=== PATIENT | female | born 1955 | race American Indian/Alaskan Native ===

== ENCOUNTER 2019-01-02 03:33 | Inpatient (IN) | payer MEDICARE ==
--- NOTE | 2019-01-02 04:04 | Emergency Department Report ---
ED Altered Mental Status HPI - General Chief Complaint: Altered Mental Status Stated Complaint: AMS Time Seen by Provider: 01/02/19 03:55 Source: EMS Mode of arrival: Stretcher Limitations: Altered Mental Status - History of Present Illness MD Complaint: altered mental status, decreased responsiveness -: Sudden Severity: severe Consistency of Symptoms: constant Context: unknown Associated Symptoms: shortness of breath - Related Data Allergies Allergy/AdvReac Type Severity Reaction Status Date / Time No Known Allergies Allergy Unverified 01/02/19 05:35 ED Review of Systems ROS: Stated complaint: AMS Other details as noted in HPI Comment: Unobtainable due to pts medical conditions (Patient is unable to provide medical history due to AMS.) ED Physical Exam - General Limitations: Physical Limitation (Patient is haring impaired.) General appearance: alert, lethargic, in distress - Head Head exam: Present: atraumatic, normal inspection - Eye Eye exam: Present: normal appearance - ENT ENT exam: Present: mucous membranes moist - Neck Neck exam: Present: normal inspection, full ROM - Respiratory Respiratory exam: Present: respiratory distress, rales, rhonchi - Cardiovascular Cardiovascular Exam: Present: normal rhythm, tachycardia, S3 - GI/Abdominal GI/Abdominal exam: Present: soft, normal bowel sounds. Absent: distended, tenderness, guarding - Extremities Exam Extremities exam: Present: normal inspection, full ROM, normal capillary refill, pedal edema - Back Exam Back exam: Present: normal inspection, full ROM - Neurological Exam Neurological exam: Present: alert, altered - Psychiatric Psychiatric exam: Present: flat affect - Skin Skin exam: Present: warm, dry, intact, normal color - Assessment Assessment Interval: Baseline (Unable to obtain because patient is altered and does not respond to verbal command. She is hearing impaired.) ED Course Vital Signs 01/02/19 01/02/19 01/02/19 03:42 03:46 04:00 Pulse Rate 115 H 109 H Respiratory 23 27 H Rate Blood Pressure 185/109 O2 Sat by Pulse 98 97 Oximetry 01/02/19 01/02/19 01/02/19 04:13 04:15 04:31 Pulse Rate 103 H 106 H 107 H Respiratory 30 H 31 H 21 Rate Blood Pressure 185/105 164/98 156/100 O2 Sat by Pulse 100 100 100 Oximetry 01/02/19 01/02/19 01/02/19 04:45 05:00 05:15 Pulse Rate 99 H 95 H 98 H Respiratory 29 H 23 22 Rate Blood Pressure 155/97 150/93 150/93 O2 Sat by Pulse 100 99 Oximetry 01/02/19 05:30 Pulse Rate 97 H Respiratory 19 Rate Blood Pressure 148/91 O2 Sat by Pulse 100 Oximetry - Consultations Consultation #1: 01/02/19 06:25 Dr. Estrella estimates to admit the patient for further management. - Lab Data Result diagrams: 01/02/19 04:30 Lab Results 01/02/19 01/02/19 01/02/19 Range/Units 03:52 04:30 04:30 PT (12.2-14.9) Sec. INR (0.87-1.13) APTT (24.2-36.6) Sec. POC ABG pH 7.267 L (7.35-7.45) POC ABG pCO2 43.1 (35-45) POC ABG pO2 75 L (80-105) POC ABG HCO3 19.6 POC ABG Total CO2 21 POC ABG O2 Sat 93 POC ABG Base Excess -7 FiO2 100 % Sodium 144 (137-145) mmol/L Potassium 3.5 L (3.6-5.0) mmol/L Chloride 103.9 (98-107) mmol/L Carbon Dioxide 20 L (22-30) mmol/L Anion Gap 24 mmol/L BUN 14 (7-17) mg/dL Creatinine 1.1 (0.7-1.2) mg/dL Estimated GFR > 60 ml/min BUN/Creatinine Ratio 13 % Glucose 224 H (65-100) mg/dL Lactic Acid 3.60 H* (0.7-2.0) mmol/L Calcium 9.5 (8.4-10.2) mg/dL Total Bilirubin 0.70 (0.1-1.2) mg/dL AST 56 H (5-40) units/L ALT 32 (7-56) units/L Alkaline Phosphatase 359 H (35-129) units/L Ammonia (25-60) umol/L Total Creatine Kinase (30-135) units/L Troponin T (0.00-0.029) ng/mL NT-Pro-B Natriuret Pep (0-900) pg/mL Total Protein 7.9 (6.3-8.2) g/dL Albumin 4.1 (3.9-5) g/dL Albumin/Globulin Ratio 1.1 % TSH (0.270-4.200) mlU/mL Urine Color (Yellow) Urine Turbidity (Clear) Urine pH (5.0-7.0) Ur Specific Saxe (1.003-1.030) Urine Protein (Negative) mg/dL Urine Glucose (UA) (Negative) mg/dL Urine Ketones (Negative) mg/dL Urine Blood (Negative) Urine Nitrite (Negative) Urine Bilirubin (Negative) Urine Urobilinogen (<2.0) mg/dL Ur Leukocyte Esterase (Negative) Urine WBC (Auto) (0.0-6.0) /HPF Urine RBC (Auto) (0.0-6.0) /HPF Urine Bacteria (Auto) (Negative) /HPF Urine Opiates Screen Urine Methadone Screen Ur Barbiturates Screen Ur Phencyclidine Scrn Ur Amphetamines Screen U Benzodiazepines Scrn Urine Cocaine Screen U Marijuana (THC) Screen Drugs of Abuse Note Plasma/Serum Alcohol (0-0.07) % 01/02/19 01/02/19 01/02/19 Range/Units 04:30 04:30 04:30 PT 14.1 (12.2-14.9) Sec. INR 1.03 (0.87-1.13) APTT 20.7 L (24.2-36.6) Sec. POC ABG pH (7.35-7.45) POC ABG pCO2 (35-45) POC ABG pO2 (80-105) POC ABG HCO3 POC ABG Total CO2 POC ABG O2 Sat POC ABG Base Excess FiO2 % Sodium (137-145) mmol/L Potassium (3.6-5.0) mmol/L Chloride (98-107) mmol/L Carbon Dioxide (22-30) mmol/L Anion Gap mmol/L BUN (7-17) mg/dL Creatinine (0.7-1.2) mg/dL Estimated GFR ml/min BUN/Creatinine Ratio % Glucose (65-100) mg/dL Lactic Acid (0.7-2.0) mmol/L Calcium (8.4-10.2) mg/dL Total Bilirubin (0.1-1.2) mg/dL AST (5-40) units/L ALT (7-56) units/L Alkaline Phosphatase (35-129) units/L Ammonia (25-60) umol/L Total Creatine Kinase (30-135) units/L Troponin T (0.00-0.029) ng/mL NT-Pro-B Natriuret Pep (0-900) pg/mL Total Protein (6.3-8.2) g/dL Albumin (3.9-5) g/dL Albumin/Globulin Ratio % TSH (0.270-4.200) mlU/mL Urine Color Yellow (Yellow) Urine Turbidity Clear (Clear) Urine pH 6.0 (5.0-7.0) Ur Specific Saxe 1.005 (1.003-1.030) Urine Protein 100 mg/dl (Negative) mg/dL Urine Glucose (UA) 50 (Negative) mg/dL Urine Ketones Neg (Negative) mg/dL Urine Blood Sm (Negative) Urine Nitrite Neg (Negative) Urine Bilirubin Neg (Negative) Urine Urobilinogen < 2.0 (<2.0) mg/dL Ur Leukocyte Esterase Neg (Negative) Urine WBC (Auto) 1.0 (0.0-6.0) /HPF Urine RBC (Auto) 1.0 (0.0-6.0) /HPF Urine Bacteria (Auto) 1+ (Negative) /HPF Urine Opiates Screen Presumptive negative Urine Methadone Screen Presumptive negative Ur Barbiturates Screen Presumptive negative Ur Phencyclidine Scrn Presumptive negative Ur Amphetamines Screen Presumptive negative U Benzodiazepines Scrn Presumptive negative Urine Cocaine Screen Presumptive negative U Marijuana (THC) Screen Presumptive negative Drugs of Abuse Note Disclamer Plasma/Serum Alcohol (0-0.07) % 01/02/19 01/02/19 01/02/19 Range/Units 04:30 04:30 04:30 PT (12.2-14.9) Sec. INR (0.87-1.13) APTT (24.2-36.6) Sec. POC ABG pH (7.35-7.45) POC ABG pCO2 (35-45) POC ABG pO2 (80-105) POC ABG HCO3 POC ABG Total CO2 POC ABG O2 Sat POC ABG Base Excess FiO2 % Sodium (137-145) mmol/L Potassium (3.6-5.0) mmol/L Chloride (98-107) mmol/L Carbon Dioxide (22-30) mmol/L Anion Gap mmol/L BUN (7-17) mg/dL Creatinine (0.7-1.2) mg/dL Estimated GFR ml/min BUN/Creatinine Ratio % Glucose (65-100) mg/dL Lactic Acid (0.7-2.0) mmol/L Calcium (8.4-10.2) mg/dL Total Bilirubin (0.1-1.2) mg/dL AST (5-40) units/L ALT (7-56) units/L Alkaline Phosphatase (35-129) units/L Ammonia 92.0 H (25-60) umol/L Total Creatine Kinase 84 (30-135) units/L Troponin T < 0.010 (0.00-0.029) ng/mL NT-Pro-B Natriuret Pep (0-900) pg/mL Total Protein (6.3-8.2) g/dL Albumin (3.9-5) g/dL Albumin/Globulin Ratio % TSH 8.050 H (0.270-4.200) mlU/mL Urine Color (Yellow) Urine Turbidity (Clear) Urine pH (5.0-7.0) Ur Specific Saxe (1.003-1.030) Urine Protein (Negative) mg/dL Urine Glucose (UA) (Negative) mg/dL Urine Ketones (Negative) mg/dL Urine Blood (Negative) Urine Nitrite (Negative) Urine Bilirubin (Negative) Urine Urobilinogen (<2.0) mg/dL Ur Leukocyte Esterase (Negative) Urine WBC (Auto) (0.0-6.0) /HPF Urine RBC (Auto) (0.0-6.0) /HPF Urine Bacteria (Auto) (Negative) /HPF Urine Opiates Screen Urine Methadone Screen Ur Barbiturates Screen Ur Phencyclidine Scrn Ur Amphetamines Screen U Benzodiazepines Scrn Urine Cocaine Screen U Marijuana (THC) Screen Drugs of Abuse Note Plasma/Serum Alcohol (0-0.07) % 01/02/19 01/02/19 01/02/19 Range/Units 04:30 04:30 05:11 PT (12.2-14.9) Sec. INR (0.87-1.13) APTT (24.2-36.6) Sec. POC ABG pH (7.35-7.45) POC ABG pCO2 (35-45) POC ABG pO2 (80-105) POC ABG HCO3 POC ABG Total CO2 POC ABG O2 Sat POC ABG Base Excess FiO2 % Sodium (137-145) mmol/L Potassium (3.6-5.0) mmol/L Chloride (98-107) mmol/L Carbon Dioxide (22-30) mmol/L Anion Gap mmol/L BUN (7-17) mg/dL Creatinine (0.7-1.2) mg/dL Estimated GFR ml/min BUN/Creatinine Ratio % Glucose (65-100) mg/dL Lactic Acid 2.30 H* (0.7-2.0) mmol/L Calcium (8.4-10.2) mg/dL Total Bilirubin (0.1-1.2) mg/dL AST (5-40) units/L ALT (7-56) units/L Alkaline Phosphatase (35-129) units/L Ammonia (25-60) umol/L Total Creatine Kinase (30-135) units/L Troponin T (0.00-0.029) ng/mL NT-Pro-B Natriuret Pep 63091 H (0-900) pg/mL Total Protein (6.3-8.2) g/dL Albumin (3.9-5) g/dL Albumin/Globulin Ratio % TSH (0.270-4.200) mlU/mL Urine Color (Yellow) Urine Turbidity (Clear) Urine pH (5.0-7.0) Ur Specific Saxe (1.003-1.030) Urine Protein (Negative) mg/dL Urine Glucose (UA) (Negative) mg/dL Urine Ketones (Negative) mg/dL Urine Blood (Negative) Urine Nitrite (Negative) Urine Bilirubin (Negative) Urine Urobilinogen (<2.0) mg/dL Ur Leukocyte Esterase (Negative) Urine WBC (Auto) (0.0-6.0) /HPF Urine RBC (Auto) (0.0-6.0) /HPF Urine Bacteria (Auto) (Negative) /HPF Urine Opiates Screen Urine Methadone Screen Ur Barbiturates Screen Ur Phencyclidine Scrn Ur Amphetamines Screen U Benzodiazepines Scrn Urine Cocaine Screen U Marijuana (THC) Screen Drugs of Abuse Note Plasma/Serum Alcohol < 0.01 (0-0.07) % 01/02/19 Range/Units 05:36 PT (12.2-14.9) Sec. INR (0.87-1.13) APTT (24.2-36.6) Sec. POC ABG pH 7.408 (7.35-7.45) POC ABG pCO2 45.3 H (35-45) POC ABG pO2 235 H (80-105) POC ABG HCO3 28.6 POC ABG Total CO2 30 POC ABG O2 Sat 100 POC ABG Base Excess 4 FiO2 100 % Sodium (137-145) mmol/L Potassium (3.6-5.0) mmol/L Chloride (98-107) mmol/L Carbon Dioxide (22-30) mmol/L Anion Gap mmol/L BUN (7-17) mg/dL Creatinine (0.7-1.2) mg/dL Estimated GFR ml/min BUN/Creatinine Ratio % Glucose (65-100) mg/dL Lactic Acid (0.7-2.0) mmol/L Calcium (8.4-10.2) mg/dL Total Bilirubin (0.1-1.2) mg/dL AST (5-40) units/L ALT (7-56) units/L Alkaline Phosphatase (35-129) units/L Ammonia (25-60) umol/L Total Creatine Kinase (30-135) units/L Troponin T (0.00-0.029) ng/mL NT-Pro-B Natriuret Pep (0-900) pg/mL Total Protein (6.3-8.2) g/dL Albumin (3.9-5) g/dL Albumin/Globulin Ratio % TSH (0.270-4.200) mlU/mL Urine Color (Yellow) Urine Turbidity (Clear) Urine pH (5.0-7.0) Ur Specific Saxe (1.003-1.030) Urine Protein (Negative) mg/dL Urine Glucose (UA) (Negative) mg/dL Urine Ketones (Negative) mg/dL Urine Blood (Negative) Urine Nitrite (Negative) Urine Bilirubin (Negative) Urine Urobilinogen (<2.0) mg/dL Ur Leukocyte Esterase (Negative) Urine WBC (Auto) (0.0-6.0) /HPF Urine RBC (Auto) (0.0-6.0) /HPF Urine Bacteria (Auto) (Negative) /HPF Urine Opiates Screen Urine Methadone Screen Ur Barbiturates Screen Ur Phencyclidine Scrn Ur Amphetamines Screen U Benzodiazepines Scrn Urine Cocaine Screen U Marijuana (THC) Screen Drugs of Abuse Note Plasma/Serum Alcohol (0-0.07) % - Radiology Data Radiology results: report reviewed, image reviewed Chest x-ray showed acute pulmonary edema. - Core Measures AMI Core Measures Followed: Yes Critical Care Time: Yes Critical care time in (mins) excluding proc time.: 50 Critical care attestation.: If time is entered above; I have spent that time in minutes in the direct care of this critically ill patient, excluding procedure time. ED Disposition Clinical Impression: Acute hepatic encephalopathy Pulmonary edema Qualifiers: Chronicity: acute Qualified Code(s): J81.0 - Acute pulmonary edema CHF (congestive heart failure) Qualifiers: Heart failure type: unspecified Heart failure chronicity: acute on chronic Qualified Code(s): I50.9 - Heart failure, unspecified Altered mental status Qualifiers: Altered mental status type: unspecified Qualified Code(s): R41.82 - Altered mental status, unspecified Disposition: DC-09 OP ADMIT IP TO THIS HOSP Is pt being admited?: Yes Does the pt Need Aspirin: No Condition: Stable Instructions: Pulmonary Edema (ED) Referrals: PRIMARY CARE, [Primary Care Provider] - 3-5 Days Time of Disposition: 06:26
[2019-01-02] MEDS ORDERED: LASIX IV ONE (04:30)
--- NOTE | 2019-01-02 04:43 | XRay Report ---
FINAL REPORT EXAM: XR CHEST 1V AP HISTORY: Altered Mental Status TECHNIQUE: AP portable view(s) of the chest obtained. PRIORS: None. FINDINGS: No mediastinal shift. Cardiac silhouette is not enlarged for portable technique. Ill-defined bibasila r opacities. Mild thickening of the right minor fissure and minimal blunting of the left costophrenic angle. No pneumothorax. No acute skeletal finding. IMPRESSION: Pulmonary interstitial edema with small pleural effusions. Superimposed infection can go undetected i n this setting. PA and lateral chest radiographic follow-up to resolution is suggested.
[2019-01-02 04:53] LABS: Bacteria,Urine 1+ /HPF (Negative); Bilirubin,Urine NEG (Negative); Blood,Urine SM (Negative); Color,Urine Yellow (Yellow); Urobilinogen,Urine < 2.0 mg/dL (<2.0)
[2019-01-02 04:56] LABS: INR 1.03 (0.87-1.13)
[2019-01-02 04:57] LABS: Partial Thromboplastin Time 20.7 Sec. (24.2-36.6)
[2019-01-02 04:58] LABS: Amphetamine Screen,Urine PRESUMPTIVE NEGATIVE; Benzodiazepines Screen,Urine PRESUMPTIVE NEGATIVE; Cannabinoid Screen,Urine PRESUMPTIVE NEGATIVE; Cocaine Screen,Urine PRESUMPTIVE NEGATIVE; Methadone Screen,Urine PRESUMPTIVE NEGATIVE; Opiate Screen,Urine PRESUMPTIVE NEGATIVE
[2019-01-02 05:12] LABS: Alanine Aminotransferase 32 units/L (7-56); Albumin 4.1 g/dL (3.9-5); BUN/Creatinine Ratio 13; Blood Urea Nitrogen 14 mg/dL (7-17); Calcium 9.5 mg/dL (8.4-10.2); Hemolysis Index 14
--- NOTE | 2019-01-02 06:37 | Cat Scan Report ---
FINAL REPORT EXAM: CT HEAD/BRAIN WO CON HISTORY: Altered Mental Status TECHNIQUE: CT imaging acquired through the head without intravenous contrast. Transaxial reformatio ns are provided. PRIORS: None. FINDINGS: The ventricles, cisterns and sulci are within normal limits. No intraparenchymal or extra-axial mass, hemorrhage, or mass effect. Fatima and white-matter differentiation is within normal limits for patie nt age. Normal spherical shape of the globes. No significant abnormality involving the imaged portions of the paranasal sinuses and mastoid air cells. No skull or facial fracture visualized. IMPRESSION: No acute intracranial abnormality.
--- NOTE | 2019-01-02 09:29 | History and Physical Report ---
History of Present Illness Date of examination: 01/02/19 Date of admission: 01/02/19 06:37 Chief complaint: Shortness of breath altered mental status History of present illness: Patient is 63 yo with history of CHF, diabetes, hypertension. History obtained mostly from daughter on phone and ED records because patient lethergic, impaired hearing.. Daughter states patient had shortness of breath, difficulty lying flat for few days. no chest pain. No fever. She was evaluated in ED, and Chest X ray revealed pulm edema consistent with CHF exacerbation. Lasix has been started in ED, she was put on ventimask. Will admit to Tele. Past History Past Medical History: diabetes, heart failure, hypertension Past Surgical History: No surgical history Social history: lives with family, full code. denies: smoking, alcohol abuse Family history: no significant family history Medications and Allergies Allergies Allergy/AdvReac Type Severity Reaction Status Date / Time No Known Allergies Allergy Verified 01/02/19 09:50 Home Medications Medication Instructions Recorded Confirmed Last Taken Type Aspirin 81 mg PO DAILY 01/02/19 01/02/19 1 Day Ago History ~01/01/19 81 Carvedilol 12.5 mg PO DAILY 01/02/19 01/02/19 01/01/19 08:00 History 12.5 Januvia 100 mg DAILY 01/02/19 01/02/19 01/01/19 09:00 History Lasix 20 mg BID 01/02/19 01/02/19 01/01/19 20:00 History Losartan 100 mg DAILY 01/02/19 01/02/19 01/01/19 09:00 History amLODIPine 2.5 mg BID 01/02/19 01/02/19 01/01/19 20:00 History Review of Systems ROS unobtainable: due to mental status Exam - Physical Exam Narrative exam: GEN: Not in acute distress, lying in bed,obese HEENT: Normocephalic, atraumatic, Neck: supple, No JVD Lungs: Bilateral basal crackles, no wheeze Heart:S1 and S2 regular, no murmurs, rubs or gallop, Abd:soft, non tender, non distended, normal bowel sounds Ext: Bilateral pedal edema, no clubbing or cyanosis Neuro: Lethargic, opens eyes, moves all extremities, Hearing impaired - Constitutional Vitals: Temp Pulse Resp BP Pulse Ox 93 H 21 148/82 94 01/02/19 05:45 01/02/19 05:45 01/02/19 06:01 01/02/19 06:01 Results - Labs CBC & Chem 7: 01/03/19 05:16 01/03/19 05:16 Labs: Abnormal lab results 01/02/19 01/02/19 01/02/19 Range/Units 03:52 04:30 04:30 APTT (24.2-36.6) Sec. POC ABG pH 7.267 L (7.35-7.45) POC ABG pCO2 (35-45) POC ABG pO2 75 L (80-105) Potassium 3.5 L (3.6-5.0) mmol/L Carbon Dioxide 20 L (22-30) mmol/L Glucose 224 H (65-100) mg/dL Lactic Acid 3.60 H* (0.7-2.0) mmol/L AST 56 H (5-40) units/L Alkaline Phosphatase 359 H (35-129) units/L Ammonia (25-60) umol/L NT-Pro-B Natriuret Pep (0-900) pg/mL TSH (0.270-4.200) mlU/mL 01/02/19 01/02/19 01/02/19 Range/Units 04:30 04:30 04:30 APTT 20.7 L (24.2-36.6) Sec. POC ABG pH (7.35-7.45) POC ABG pCO2 (35-45) POC ABG pO2 (80-105) Potassium (3.6-5.0) mmol/L Carbon Dioxide (22-30) mmol/L Glucose (65-100) mg/dL Lactic Acid (0.7-2.0) mmol/L AST (5-40) units/L Alkaline Phosphatase (35-129) units/L Ammonia 92.0 H (25-60) umol/L NT-Pro-B Natriuret Pep (0-900) pg/mL TSH 8.050 H (0.270-4.200) mlU/mL 01/02/19 01/02/19 01/02/19 Range/Units 04:30 05:11 05:36 APTT (24.2-36.6) Sec. 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 Monitor BP Hearing impaired Elevated Ammonia level Etiology unclear Give lactulose. repeat Toxic metabolic encephalopathy Neurochecks She is lethargic Discussed with daughter on phone Full code status
[2019-01-02] MEDS ORDERED: PROVENTIL IH PRN (12:33)
[2019-01-02] MEDS ORDERED: TYLENOL PO PRN (12:33)
[2019-01-02] MEDS ORDERED: MORPHINE IV PRN (12:33)
[2019-01-02] MEDS ORDERED: SODIUM CHLORIDE FLUSH SYRINGE 10 ML IV PRN (12:33)
[2019-01-02] MEDS ORDERED: ZOFRAN IV PRN (12:33)
[2019-01-02] MEDS ORDERED: NITROSTAT SL PRN (12:35)
[2019-01-02] MEDS ORDERED: NON-FORMULARY (Losartan 100 MG) PO SCH (12:45)
[2019-01-02] MEDS ORDERED: ASPIRIN PO SCH (12:45)
--- NOTE | 2019-01-02 13:09 | Consultation ---
History of Present Illness Consult date: 01/02/19 Requesting physician: FRIDA MITCHELL Reason for consult: other (Acute Hypoxemic Respiratory Failure) History of present illness: PCCM CONSULT NOTE (Full dictation # [id number]) Please see dictated notes for full details Past History Past Medical History: diabetes, heart failure, hypertension Past Surgical History: No surgical history Social history: lives with family, full code. denies: smoking, alcohol abuse Family history: no significant family history Medications and Allergies Allergies Allergy/AdvReac Type Severity Reaction Status Date / Time No Known Allergies Allergy Verified 01/02/19 09:50 Home Medications Medication Instructions Recorded Confirmed Last Taken Type Aspirin 81 DAILY 01/02/19 1 Day Ago History ~01/01/19 81 Carvedilol 12.5 DAILY 01/02/19 01/01/19 08:00 History 12.5 Januvia 100 mg DAILY 01/02/19 01/02/19 01/01/19 09:00 History Lasix 20 mg BID 01/02/19 01/02/19 01/01/19 20:00 History Losartan 100 mg DAILY 01/02/19 01/02/19 01/01/19 09:00 History amLODIPine 2.5 mg BID 01/02/19 01/02/19 01/01/19 20:00 History levoFLOXacin 50 mg 01/02/19 01/01/19 08:00 History Active Meds: Active Medications Acetaminophen (Tylenol) 650 mg PO Q4H PRN PRN Reason: Pain MILD(1-3)/Fever >100.5/NÚÑEZ Albuterol (Proventil) 2.5 mg IH Q4HRT PRN PRN Reason: Shortness Of Breath Aspirin (Baby Aspirin) 81 mg PO QDAY MARY Carvedilol (Coreg) 12.5 mg PO BID MARY Furosemide (Lasix) 40 mg IV BID@0600,1800 MARY Lactulose (Cephulac) 20 gm PO Q6HR MARY Losartan Potassium (Cozaar) 100 mg PO QDAY MARY Morphine Sulfate (Morphine) 2 mg IV Q4H PRN PRN Reason: Pain, Moderate (4-6) Nitroglycerin (Nitrostat) 0.4 mg SL .Q5MIN PRN PRN Reason: Chest Pain Ondansetron HCl (Zofran) 4 mg IV Q8H PRN PRN Reason: Nausea And Vomiting Sodium Chloride (Sodium Chloride Flush Syringe 10 Ml) 10 ml IV BID MARY Sodium Chloride (Sodium Chloride Flush Syringe 10 Ml) 10 ml IV PRN PRN PRN Reason: LINE FLUSH Physical Examination Vital signs: Vital Signs Pulse Ox 98 01/02/19 03:42 Results - Laboratory Findings CBC and BMP: 01/02/19 04:30 ABG POC ABG pH 7.408 (7.35-7.45) 01/02/19 05:36 POC ABG pCO2 45.3 (35-45) H 01/02/19 05:36 POC ABG pO2 235 (80-105) H 01/02/19 05:36 POC ABG HCO3 28.6 01/02/19 05:36 POC ABG Total CO2 30 01/02/19 05:36 POC ABG O2 Sat 100 01/02/19 05:36 PT/INR, D-dimer PT 14.1 Sec. (12.2-14.9) 01/02/19 04:30 INR 1.03 (0.87-1.13) 01/02/19 04:30 Abnormal lab findings: Abnormal Labs 01/02/19 01/02/19 01/02/19 03:52 04:30 04:30 APTT POC ABG pH 7.267 L POC ABG pCO2 POC ABG pO2 75 L Potassium 3.5 L Carbon Dioxide 20 L Glucose 224 H Lactic Acid 3.60 H* AST 56 H Alkaline Phosphatase 359 H Ammonia NT-Pro-B Natriuret Pep TSH 01/02/19 01/02/19 01/02/19 04:30 04:30 04:30 APTT 20.7 L POC ABG pH POC ABG pCO2 POC ABG pO2 Potassium Carbon Dioxide Glucose Lactic Acid AST Alkaline Phosphatase Ammonia 92.0 H NT-Pro-B Natriuret Pep TSH 8.050 H 01/02/19 01/02/19 01/02/19 04:30 05:11 05:36 APTT POC ABG pH POC ABG pCO2 45.3 H POC ABG pO2 235 H Potassium Carbon Dioxide Glucose Lactic Acid 2.30 H* AST Alkaline Phosphatase Ammonia NT-Pro-B Natriuret Pep 81407 H TSH
[2019-01-02] MEDS: CEPHULAC PO SCH ×3 (14:00→23:15)
[2019-01-02 15:17] LABS: C-Reactive Protein 1.6 mg/dL (0.00-1.30)
[2019-01-02] MEDS: LASIX IV SCH (18:34)
[2019-01-02] MEDS: BABY ASPIRIN PO SCH (18:34)
[2019-01-02] MEDS: COZAAR PO SCH (18:42)
[2019-01-02] MEDS: COREG PO SCH (23:09)
[2019-01-02] MEDS: SODIUM CHLORIDE FLUSH SYRINGE 10 ML IV SCH (23:09)
[2019-01-02] MEDS ORDERED: APRESOLINE IV PRN (23:29)
--- NOTE | 2019-01-03 00:23 | Consultation ---
PULMONARY CONSULTATION NOTE CONSULTING PHYSICIAN: Ramiro Hayden MD REASON FOR CONSULTATION: Acute hypoxemic respiratory failure, acute CHF exacerbation. CHIEF COMPLAINT AND HISTORY OF PRESENT ILLNESS: As follows: The patient is a 63-year-old -[place] female, unfortunately with clinical deafness and unable to hear most of my questions. She does try to read lips. History is based on review of medical records as well as discussions with other healthcare personnel and the patient's daughter. She came into the Emergency Room, brought in, I believe by her daughter secondary to increased work of breathing. Her daughter said she believed fluid, water was building up in her lungs. I believe this has happened before. She does have a known history of congestive heart failure. It seems like she has a home health person and had been taking her meds as prescribed. Again, she was brought into the Emergency Room secondary to increased work of breathing, shortness of breath, dyspnea on exertion. Her daughter denied any fevers or chills. No sick contacts. In the emergency room, she was evaluated by the Emergency Room physician and after evaluation as well as imaging, was admitted with a diagnosis of acute hypoxemic respiratory failure and congestive heart failure. When I stopped by to see the patient, she was lying in bed, actually sitting up in bed, head of the bed was around 45-50 degrees. She is hard of hearing. She nodded her head yes when asked about pain, but that could not sure exactly the location. She was on supplemental oxygen. I does not have any history of vomiting or overt aspiration. She has described as a never smoker by her daughter. The above is as much of the history of presentation as I have. PAST MEDICAL HISTORY: 1. As far as we can tell congestive heart failure. 2. She is obese. 3. History of diabetes. PAST SURGICAL HISTORY: Unknown. MEDICATIONS: She was on at the time I stopped by to see her were reviewed. Pertinent medications included the following: Tylenol 650 mg p.o. q. 4 hours p.r.n. mild pain or fevers, Albuterol nebulizer treatments 2.5 mg q. 4 hours p.r.n., baby aspirin 1 tablet p.o. daily, Coreg 12.5 mg p.o. b.i.d., Lasix 40 mg IV b.i.d., lactulose 20 grams p.o. q. 6 hours scheduled, losartan 100 mg p.o. daily, morphine sulfate 2 mg IV q. 4 hours p.r.n. moderate pain, Zofran 4 mg IV q. 8 hours p.r.n. nausea and vomiting. ALLERGIES: No known drug allergies. DIET: Obese lady, acute weight loss or gain history is unknown. FAMILY AND SOCIAL HISTORY: Lives in the community I believe with her daughter. No alcohol, tobacco, illicit drug use or abuse history. Family history is otherwise unknown. REVIEW OF SYSTEMS: Difficult to obtain secondary to her medical and mental condition. Since she has been here, no gross hematochezia or melena, no gross hematuria, no hematemesis, no hemoptysis, no witnessed seizures. Review of systems is otherwise unobtainable or as in body of history above. PHYSICAL EXAMINATION: VITAL SIGNS: At presentation over here, initial temperature was 98 degrees Fahrenheit, initial pulse 115, respiratory rate as high as 31 in the ER, blood pressure 185/109. At presentation, O2 sats 98%, inspired oxygen concentration was not recorded. When I stopped by to see her, she was 94% on a 40% Ventimask. GENERAL: Elderly looking -[place] female, normocephalic, atraumatic, resting in bed with mildly increased respiratory effort at rest. HEAD, EYES, EARS, NOSE AND THROAT: She is anicteric. No conjunctival erythema. Oropharynx is moist, is a Mallampati #4 oropharynx. Grossly, no palpable lymph nodes in the supraclavicular or submandibular lymph node chains. No gross jugular venous distention, no thyromegaly. LUNGS: Auscultation of both lung wren diminished bilateral breath sounds with slightly prolonged expiratory phase, mild inspiratory crackles posteriorly. No wheezing. HEART: Heart sounds 1 and 2 are heard, regular rate and rhythm at the time of my evaluation, without rubs or murmurs. ABDOMEN: Soft, full, bowel sounds are positive, nontender. EXTREMITIES: Without overt digital clubbing or cyanosis. She has about 1-2+ bipedal pitting edema. Dorsalis pedis pulses are palpable bilaterally. Again, no palpable hepatosplenomegaly. NEUROLOGIC: Pupils equal, round, about 4-5 mm, reactive to light. Extraocular muscle movements were intact. She moved all 4 extremities spontaneously. The skin was of normal turgor without overt cellulitis or rash. LABORATORY DATA: From my review, admission CBC is pending. INR 1.03. Blood gas at presentation showed a pH of 7.27, pCO2 was within normal range at 43 and pO2 was 75 that was on 100% FiO2. Repeat blood gas earlier this morning showed a pH of 7.41, pCO2 of 45 and a pO2 of 235 again on 100%. Serum sodium 144, potassium was 3.5, chloride 104, bicarbonate 20, BUN 14, creatinine 1.1, and glucose 224. Lactic acid level was 2.3. AST is elevated at 56. Ammonia level elevated at 92, alkaline phosphatase up at 359. Otherwise, liver function tests within normal limits. TSH is high 8.05, free T4 was within normal limits. Urinalysis was negative for nitrites and leukocyte esterase and unremarkable. Urine drug screen was presumptive negative. Alcohol level was non-detectable. Two sets of blood cultures are pending. She had a chest x-ray done as well as a CT scan of the head. CT scan of the head was read as a normal CT of the head. The chest x-ray shows is an AP film, but all the same. She does have cardiomegaly with increased interstitial markings and a moderate pulmonary edema pattern, bilateral small pleural effusions, no gross pneumothorax, no gross bony fracture or fluid in the minor fissure. ASSESSMENT: 1. Acute hypoxemic respiratory failure. 2. Acute pulmonary edema. 3. Acute congestive heart failure exacerbation. 4. Possible occult pneumonia. 5. Hypokalemia, mild. 6. Lactic acidosis. 7. Elevated serum transaminases. 8. Hyperammonemia. 9. Elevated serum TSH. 10. Obesity. 11. Hard of hearing. PLAN: I do feel like CHF is the main player here. I should also mention that her BNP is elevated at 10,330. We agree with the diuresis. I will schedule some breathing treatments in the short term. We will do DuoNeb t.i.d. and then p.r.n. thereafter. She will benefit from a sleep study and probably from bilevel positive air pressure ventilation therapy, especially because of its salutary hemodynamic/cardiovascular effects to reduce out after reduce preload and help with afterload. Oxygen will be weaned to keep sats greater than or equal to about 90%. I will deploy BiPAP at bedtime empirically until we get her oxygenation much improved and the pulmonary edema better. Potassium will be corrected. We will trend the lactic acid levels, stat CBC will be ordered as well as a CRP level to better evaluate the true infectious potential of the lactic acidemia. I have a mind to start her on some empiric Levaquin monotherapy at least until we see the CRP levels and we see the white count. She will also be placed on GI prophylaxis as well as DVT prophylaxis. I will wait to see what her platelet count is. Flu and pneumonia vaccination will be addressed per protocol. I have discussed the care plan with her daughter. We are all in agreement. Thank you very much for the consult, Dr. Hayden. We will follow along. We will make further recommendations as picture progresses/becomes clearer. JOB# [id number] TOBIAS/HERMINIA ARCOS
[2019-01-03 06:13] LABS: Basophils % (Auto) 0.4 % (0.0-1.8); Eosinophils # (Auto) 0.1 K/mm3 (0.0-0.4); Eosinophils % (Auto) 1.4 % (0.0-4.3); Hematocrit 35.5 % (30.3-42.9); Hemoglobin 11.4 gm/dl (10.1-14.3); Lymphocytes # (Auto) 1.5 K/mm3 (1.2-5.4); Lymphocytes % (Auto) 32.2 % (13.4-35.0); Mean Corpuscular HGB Conc 32 % (30-34); Mean Corpuscular Volume 84 fl (79-97); Monocytes # (Auto) 0.7 K/mm3 (0.0-0.8); Monocytes % (Auto) 14.2 % (0.0-7.3); Platelet Count 209 K/mm3 (140-440); Red Blood Count 4.21 M/mm3 (3.65-5.03); Red Cell Distribution Width 19.8 % (13.2-15.2)
[2019-01-03] MEDS: LASIX IV SCH ×2 (06:26→17:45)
[2019-01-03] MEDS: CEPHULAC PO SCH ×4 (06:26→23:22)
[2019-01-03 06:37] LABS: Alanine Aminotransferase 24 units/L (7-56); Albumin 3.3 g/dL (3.9-5); BUN/Creatinine Ratio 12; Blood Urea Nitrogen 12 mg/dL (7-17); Calcium 8.7 mg/dL (8.4-10.2); Hemolysis Index 8
[2019-01-03] MEDS: BABY ASPIRIN PO SCH (10:11)
[2019-01-03] MEDS: COREG PO SCH ×2 (10:11→22:50)
[2019-01-03] MEDS: COZAAR PO SCH (10:11)
[2019-01-03] MEDS: HEPARIN SUB-Q SCH ×3 (10:12→22:50)
[2019-01-03] MEDS: SODIUM CHLORIDE FLUSH SYRINGE 10 ML IV SCH ×2 (10:12→22:50)
--- NOTE | 2019-01-03 11:30 | Consultation ---
History of Present Illness Consult date: 01/03/19 Requesting physician: FRIDA MITCHELL Consult reason: congestive heart failure History of present illness: The patient is 63 yo female with history of ? dementia, HF per the chart, DM, HTN, hard of hearing. She is lethargic and confused on evaluation with no family members at bedside and thus HPI is obtained per the chart. She presented for evaluation of SOB, orthopnea and BLE swelling. On evaluation, pt admits to avi "big legs" for a while. CXR c/w HF, pro-BNP >10K. Past History Past Medical History: diabetes, heart failure, hypertension, other (? dementia) Past Surgical History: No surgical history Social history: lives with family, full code. denies: smoking, alcohol abuse Family history: no significant family history Medications and Allergies Allergies Allergy/AdvReac Type Severity Reaction Status Date / Time No Known Allergies Allergy Verified 01/02/19 09:50 Home Medications Medication Instructions Recorded Confirmed Last Taken Type Aspirin 81 mg PO DAILY 01/02/19 01/02/19 1 Day Ago History ~01/01/19 81 Carvedilol 12.5 mg PO DAILY 01/02/19 01/02/19 01/01/19 08:00 History 12.5 Januvia 100 mg DAILY 01/02/19 01/02/19 01/01/19 09:00 History Lasix 20 mg BID 01/02/19 01/02/19 01/01/19 20:00 History Losartan 100 mg DAILY 01/02/19 01/02/19 01/01/19 09:00 History amLODIPine 2.5 mg BID 01/02/19 01/02/19 01/01/19 20:00 History Active Meds: Active Medications Acetaminophen (Tylenol) 650 mg PO Q4H PRN PRN Reason: Pain MILD(1-3)/Fever >100.5/NÚÑEZ Albuterol (Proventil) 2.5 mg IH Q4HRT PRN PRN Reason: Shortness Of Breath Aspirin (Baby Aspirin) 81 mg PO QDAY [facility] Last Admin: 01/03/19 10:11 Dose: 81 mg Documented by: Carvedilol (Coreg) 12.5 mg PO BID [facility] Last Admin: 01/03/19 10:11 Dose: 12.5 mg Documented by: Furosemide (Lasix) 40 mg IV BID@0600,1800 [facility] Last Admin: 01/03/19 06:26 Dose: 40 mg Documented by: Heparin Sodium (Porcine) (Heparin) 5,000 unit SUB-Q Q8HR [facility] Last Admin: 01/03/19 10:12 Dose: 5,000 unit Documented by: Hydralazine HCl (Apresoline) 5 mg IV Q6HR PRN PRN Reason: Hypertension Lactulose (Cephulac) 20 gm PO Q6HR [facility] Last Admin: 01/03/19 06:26 Dose: 20 gm Documented by: Losartan Potassium (Cozaar) 100 mg PO QDAY [facility] Last Admin: 01/03/19 10:11 Dose: 100 mg Documented by: Morphine Sulfate (Morphine) 2 mg IV Q4H PRN PRN Reason: Pain, Moderate (4-6) Nitroglycerin (Nitrostat) 0.4 mg SL .Q5MIN PRN PRN Reason: Chest Pain Ondansetron HCl (Zofran) 4 mg IV Q8H PRN PRN Reason: Nausea And Vomiting Sodium Chloride (Sodium Chloride Flush Syringe 10 Ml) 10 ml IV BID [facility] Last Admin: 01/03/19 10:12 Dose: 10 ml Documented by: Sodium Chloride (Sodium Chloride Flush Syringe 10 Ml) 10 ml IV PRN PRN PRN Reason: LINE FLUSH Review of Systems ROS unobtainable: due to mental status Cardiovascular: leg edema Physical Examination Vital Signs Pulse Ox 98 01/02/19 03:42 General appearance: no acute distress, other (confused, lethargic ) Neck: Positive: neck supple, trachea midline Cardiac: Positive: Reg Rate and Rhythm, S1/S2 Lungs: Positive: Decreased Breath Sounds, Rales Neuro: Positive: Other (confused, lethargic) Abdomen: Negative: Tender Skin: Negative: Rash, Wound Musculoskeletal: No Pain Extremities: Present: +2 Edema (BLE) Results 01/03/19 05:16 01/03/19 05:16 Cardiac Enzymes 01/03/19 Range/Units 05:16 AST 35 (5-40) units/L CBC 01/03/19 Range/Units 05:16 WBC 4.7 (4.5-11.0) K/mm3 RBC 4.21 (3.65-5.03) M/mm3 Hgb 11.4 (10.1-14.3) gm/dl Hct 35.5 (30.3-42.9) % Plt Count 209 (140-440) K/mm3 Lymph # 1.5 (1.2-5.4) K/mm3 [place] # 0.7 (0.0-0.8) K/mm3 Eos # 0.1 (0.0-0.4) K/mm3 Baso # 0.0 (0.0-0.1) K/mm3 Comprehensive Metabolic Panel 01/03/19 Range/Units 05:16 Sodium 147 H (137-145) mmol/L Potassium 3.1 L (3.6-5.0) mmol/L Chloride 106.4 (98-107) mmol/L Carbon Dioxide 28 D (22-30) mmol/L BUN 12 (7-17) mg/dL Creatinine 1.0 (0.7-1.2) mg/dL Glucose 106 H (65-100) mg/dL Calcium 8.7 (8.4-10.2) mg/dL AST 35 (5-40) units/L ALT 24 (7-56) units/L Alkaline Phosphatase 234 H (35-129) units/L Total Protein 6.2 L D (6.3-8.2) g/dL Albumin 3.3 L (3.9-5) g/dL - Imaging and Cardiology Echo: pending EKG: report reviewed, image reviewed EKG interpretations - Telemetry EKG Rhythm: Sinus Rhythm - EKG Sinus rhythms and dysrhythmias: sinus rhythm Repolarization changes or abnormalities: nonspecific abnormality, ST segment, and/or T wave Assessment and Plan Agree with present cardiac management. Await echo. The patient has been seen in conjunction with Dr. Hudson who agrees with the assessment and plan of care. - Patient Problems (1) Acute heart failure Current Visit: Yes Status: Acute (2) Altered mental status Current Visit: Yes Status: Acute Qualifiers: Altered mental status type: unspecified Qualified Code(s): R41.82 - Altered mental status, unspecified (3) HTN (hypertension) Current Visit: Yes Status: Chronic (4) Diabetes Current Visit: Yes Status: Chronic (5) Lactic acidosis Current Visit: Yes Status: Acute
--- NOTE | 2019-01-03 11:48 | Progress Note ---
Assessment and Plan Assessment and plan: Acute hypoxemic respiratory failure. Etiology secondary to heart failure. Continue supplemental oxygen. Acute on chronic CHF exacerbation. Follow-up echocardiogram. Cardiology following. Continue Lasix and Coreg. Diabetes mellitus type 2. Continue accuchecks and sliding scale insulin Hypertension. Continue anti-hepatitis medications. Toxic metabolic encephalopathy. History Interval history: No new issues overnight. Patient does not respond verbally. Opens eyes to voice. Hospitalist Physical - Constitutional Vitals: Temp Pulse Resp BP Pulse Ox 97.5 F L 89 20 145/80 96 01/03/19 09:05 01/03/19 10:11 01/03/19 09:05 01/03/19 10:11 01/03/19 09:05 General appearance: Present: no acute distress, other (confused, lethargic ) - EENT Eyes: Present: PERRL, EOM intact ENT: hearing intact, clear oral mucosa, dentition normal - Neck Neck: Present: supple, normal ROM - Respiratory Respiratory effort: normal Respiratory: bilateral: CTA - Cardiovascular Rhythm: regular Heart Sounds: Present: S1 & S2. Absent: gallop, rub - Extremities Extremities: no ischemia, No edema, Full ROM - Abdominal General gastrointestinal: soft, non-tender, non-distended, normal bowel sounds - Integumentary Integumentary: Present: clear, warm, dry - Neurologic Neurologic: CNII-XII intact, moves all extremities Results - Labs CBC & Chem 7: 01/03/19 05:16 01/03/19 05:16 Labs: Laboratory Last Values WBC 4.7 K/mm3 (4.5-11.0) 01/03/19 05:16 RBC 4.21 M/mm3 (3.65-5.03) 01/03/19 05:16 Hgb 11.4 gm/dl (10.1-14.3) 01/03/19 05:16 Hct 35.5 % (30.3-42.9) 01/03/19 05:16 MCV 84 fl (79-97) 01/03/19 05:16 MCH 27 pg (28-32) L 01/03/19 05:16 MCHC 32 % (30-34) 01/03/19 05:16 RDW 19.8 % (13.2-15.2) H 01/03/19 05:16 Plt Count 209 K/mm3 (140-440) 01/03/19 05:16 Lymph % (Auto) 32.2 % (13.4-35.0) 01/03/19 05:16 [place] % (Auto) 14.2 % (0.0-7.3) H 01/03/19 05:16 Eos % (Auto) 1.4 % (0.0-4.3) 01/03/19 05:16 Baso % (Auto) 0.4 % (0.0-1.8) 01/03/19 05:16 Lymph # 1.5 K/mm3 (1.2-5.4) 01/03/19 05:16 [place] # 0.7 K/mm3 (0.0-0.8) 01/03/19 05:16 Eos # 0.1 K/mm3 (0.0-0.4) 01/03/19 05:16 Baso # 0.0 K/mm3 (0.0-0.1) 01/03/19 05:16 Seg Neutrophils % 51.8 % (40.0-70.0) 01/03/19 05:16 Seg Neutrophils # 2.4 K/mm3 (1.8-7.7) 01/03/19 05:16 PT 14.1 Sec. (12.2-14.9) 01/02/19 04:30 INR 1.03 (0.87-1.13) 01/02/19 04:30 APTT 20.7 Sec. (24.2-36.6) L 01/02/19 04:30 POC ABG pH 7.408 (7.35-7.45) 01/02/19 05:36 POC ABG pCO2 45.3 (35-45) H 01/02/19 05:36 POC ABG pO2 235 (80-105) H 01/02/19 05:36 POC ABG HCO3 28.6 01/02/19 05:36 POC ABG Total CO2 30 01/02/19 05:36 POC ABG O2 Sat 100 01/02/19 05:36 POC ABG Base Excess 4 01/02/19 05:36 FiO2 100 % 01/02/19 05:36 Sodium 147 mmol/L (137-145) H 01/03/19 05:16 Potassium 3.1 mmol/L (3.6-5.0) L 01/03/19 05:16 Chloride 106.4 mmol/L (98-107) 01/03/19 05:16 Carbon Dioxide 28 mmol/L (22-30) D 01/03/19 05:16 Anion Gap 16 mmol/L 01/03/19 05:16 BUN 12 mg/dL (7-17) 01/03/19 05:16 Creatinine 1.0 mg/dL (0.7-1.2) 01/03/19 05:16 Estimated GFR > 60 ml/min 01/03/19 05:16 BUN/Creatinine Ratio 12 % 01/03/19 05:16 Glucose 106 mg/dL (65-100) H 01/03/19 05:16 POC Glucose 129 (70-105) H 01/03/19 10:51 Lactic Acid 1.40 mmol/L (0.7-2.0) 01/02/19 18:04 Calcium 8.7 mg/dL (8.4-10.2) 01/03/19 05:16 Magnesium 1.90 mg/dL (1.7-2.3) 01/02/19 14:36 Total Bilirubin 0.50 mg/dL (0.1-1.2) 01/03/19 05:16 AST 35 units/L (5-40) 01/03/19 05:16 ALT 24 units/L (7-56) 01/03/19 05:16 Alkaline Phosphatase 234 units/L (35-129) H 01/03/19 05:16 Ammonia 44.0 umol/L (25-60) 01/03/19 09:42 Total Creatine Kinase 84 units/L (30-135) 01/02/19 04:30 Troponin T 0.015 ng/mL (0.00-0.029) 01/02/19 07:14 C-Reactive Protein 1.60 mg/dL (0.00-1.30) H 01/02/19 14:36 NT-Pro-B Natriuret Pep 36473 pg/mL (0-900) H 01/02/19 04:30 Total Protein 6.2 g/dL (6.3-8.2) L D 01/03/19 05:16 Albumin 3.3 g/dL (3.9-5) L 01/03/19 05:16 Albumin/Globulin Ratio 1.1 % 01/03/19 05:16 TSH 8.050 mlU/mL (0.270-4.200) H 01/02/19 04:30 Free T4 1.35 ng/dL (0.76-1.46) 01/02/19 04:30 Urine Color Yellow (Yellow) 01/02/19 04:30 Urine Turbidity Clear (Clear) 01/02/19 04:30 Urine pH 6.0 (5.0-7.0) 01/02/19 04:30 Ur Specific [place] 1.005 (1.003-1.030) 01/02/19 04:30 Urine Protein 100 mg/dl mg/dL (Negative) 01/02/19 04:30 Urine Glucose (UA) 50 mg/dL (Negative) 01/02/19 04:30 Urine Ketones Neg mg/dL (Negative) 01/02/19 04:30 Urine Blood Sm (Negative) 01/02/19 04:30 Urine Nitrite Neg (Negative) 01/02/19 04:30 Urine Bilirubin Neg (Negative) 01/02/19 04:30 Urine Urobilinogen < 2.0 mg/dL (<2.0) 01/02/19 04:30 Ur Leukocyte Esterase Neg (Negative) 01/02/19 04:30 Urine WBC (Auto) 1.0 /HPF (0.0-6.0) 01/02/19 04:30 Urine RBC (Auto) 1.0 /HPF (0.0-6.0) 01/02/19 04:30 Urine Bacteria (Auto) 1+ /HPF (Negative) 01/02/19 04:30 Urine Opiates Screen Presumptive negative 01/02/19 04:30 Urine Methadone Screen Presumptive negative 01/02/19 04:30 Ur Barbiturates Screen Presumptive negative 01/02/19 04:30 Ur Phencyclidine Scrn Presumptive negative 01/02/19 04:30 Ur Amphetamines Screen Presumptive negative 01/02/19 04:30 U Benzodiazepines Scrn Presumptive negative 01/02/19 04:30 Urine Cocaine Screen Presumptive negative 01/02/19 04:30 U Marijuana (THC) Screen Presumptive negative 01/02/19 04:30 Drugs of Abuse Note Disclamer 01/02/19 04:30 Plasma/Serum Alcohol < 0.01 % (0-0.07) 01/02/19 04:30
--- NOTE | 2019-01-03 17:58 | Progress Note ---
Assessment and Plan Acute hypoxemic respiratory failure. Acute pulmonary edema. Acute congestive heart failure exacerbation. Possible occult pneumonia. Diabetes type II Hypokalemia, mild. Lactic acidosis. Elevated serum transaminases. Hyperammonemia. Elevated serum TSH. Obesity. Hard of hearing - continue diuresis - continue supplemental oxygen to keep sats > 90% - monitor electrolytes while diuresing - BIPAP qhs - lactate WNL and CRP unremarkable; follow clinically off AB's - optimize cardiac function per web operations manager - GI & VTE prophylaxis - Flu & Pneumovax addressed per protocol ... re-evaluate in am & prn Subjective Date of service: 01/03/19 Principal diagnosis: Acute Hypoxemic Resp Failure; Ac. Pulm Edema; Acute CHF exacerbation; DM II Interval history: Patient is seen today for: Acute hypoxemic respiratory failure; Acute pulmonary edema; Acute congestive heart failure exacerbation; Possible occult pneumonia; Diabetes type II Seen and examined at bedside; 24hour events reviewed; nursing and respiratory care staff consulted; no adverse overnight events reported to me; resting peacefully in bed; remains on supplemental oxygen; denies acute chest pains; No N/V/F/C; daughter visited earlier Objective Vital Signs - 12hr 01/03/19 01/03/19 01/03/19 08:20 08:40 08:57 Temperature Pulse Rate Respiratory Rate Blood Pressure O2 Sat by Pulse 90 98 97 Oximetry 01/03/19 01/03/19 01/03/19 09:05 10:00 10:11 Temperature 97.5 F L Pulse Rate 89 89 Respiratory 20 18 Rate Blood Pressure 145/80 145/80 O2 Sat by Pulse 96 Oximetry 01/03/19 12:59 Temperature 98.4 F Pulse Rate 96 H Respiratory 16 Rate Blood Pressure 138/86 O2 Sat by Pulse 97 Oximetry Constitutional: no acute distress, alert, other (elderly looking obese AAF, normocephalic and atraumatic with mildly increased respiratory effort at rest) Eyes: non-icteric ENT: oropharynx moist, other (Mallampati 3) Neck: supple, no lymphadenopathy, no JVD, other (no thyromegaly) Effort: mildly labored Ascultation: Bilateral: clear, diminished breath sounds Percussion: Bilateral: not dull Cardiovascular: regular rate and rhythm Gastrointestinal: normoactive bowel sounds, soft, non-tender, non-distended Integumentary: normal Extremities: no cyanosis, no edema, pulses normal, no ischemia or petechiae Neurologic: normal mental status, non-focal exam, pupils equal and round, motor strength normal and, other (hard of hearing / legally deaf) Psychiatric: mood appropriate, affect normal CBC and BMP: 01/03/19 05:16 01/04/19 11:39 ABG, PT/INR, D-dimer: ABG POC ABG pH 7.408 (7.35-7.45) 01/02/19 05:36 POC ABG pCO2 45.3 (35-45) H 01/02/19 05:36 POC ABG pO2 235 (80-105) H 01/02/19 05:36 POC ABG HCO3 28.6 01/02/19 05:36 POC ABG Total CO2 30 01/02/19 05:36 POC ABG O2 Sat 100 01/02/19 05:36 PT/INR, D-dimer PT 14.1 Sec. (12.2-14.9) 01/02/19 04:30 INR 1.03 (0.87-1.13) 01/02/19 04:30 Abnormal lab findings: Abnormal Labs 01/02/19 01/02/19 01/02/19 03:52 04:30 04:30 MCH RDW [place] % (Auto) APTT POC ABG pH 7.267 L POC ABG pCO2 POC ABG pO2 75 L Sodium Potassium 3.5 L Carbon Dioxide 20 L Glucose 224 H POC Glucose Lactic Acid 3.60 H* AST 56 H Alkaline Phosphatase 359 H Ammonia C-Reactive Protein NT-Pro-B Natriuret Pep Total Protein Albumin TSH 01/02/19 01/02/19 01/02/19 04:30 04:30 04:30 MCH RDW [place] % (Auto) APTT 20.7 L POC ABG pH POC ABG pCO2 POC ABG pO2 Sodium Potassium Carbon Dioxide Glucose POC Glucose Lactic Acid AST Alkaline Phosphatase Ammonia 92.0 H C-Reactive Protein NT-Pro-B Natriuret Pep Total Protein Albumin TSH 8.050 H 01/02/19 01/02/19 01/02/19 04:30 05:11 05:36 MCH RDW [place] % (Auto) APTT POC ABG pH POC ABG pCO2 45.3 H POC ABG pO2 235 H Sodium Potassium Carbon Dioxide Glucose POC Glucose Lactic Acid 2.30 H* AST Alkaline Phosphatase Ammonia C-Reactive Protein NT-Pro-B Natriuret Pep 78919 H Total Protein Albumin [facility] 01/02/19 01/02/19 01/02/19 14:36 14:36 15:55 MCH RDW [place] % (Auto) APTT POC ABG pH POC ABG pCO2 POC ABG pO2 Sodium Potassium Carbon Dioxide Glucose POC Glucose Lactic Acid 2.10 H* 2.20 H* AST Alkaline Phosphatase Ammonia C-Reactive Protein 1.60 H NT-Pro-B Natriuret Pep Total Protein Albumin [facility] 01/02/19 01/03/19 01/03/19 17:23 05:16 05:16 MCH 27 L RDW 19.8 H [place] % (Auto) 14.2 H APTT POC ABG pH POC ABG pCO2 POC ABG pO2 Sodium 147 H Potassium 3.1 L Carbon Dioxide Glucose 106 H POC Glucose 124 H Lactic Acid AST Alkaline Phosphatase 234 H Ammonia C-Reactive Protein NT-Pro-B Natriuret Pep Total Protein 6.2 L D Albumin 3.[address] [facility] 01/03/19 01/03/19 10:51 16:52 MCH RDW [place] % (Auto) APTT POC ABG pH POC ABG pCO2 POC ABG pO2 Sodium Potassium Carbon Dioxide Glucose POC Glucose 129 H 127 H Lactic Acid AST Alkaline Phosphatase Ammonia C-Reactive Protein NT-Pro-B Natriuret Pep Total Protein Albumin [facility] Chest x-ray: image reviewed (pulmonary edema) Allied health notes reviewed: nursing
[2019-01-04] MEDS: LASIX IV SCH ×2 (05:24→17:28)
[2019-01-04] MEDS: HEPARIN SUB-Q SCH ×3 (05:26→21:52)
[2019-01-04] MEDS: CEPHULAC PO SCH ×4 (05:27→23:03)
[2019-01-04] MEDS: BABY ASPIRIN PO SCH (10:02)
[2019-01-04] MEDS: COREG PO SCH ×2 (10:02→21:51)
[2019-01-04] MEDS: COZAAR PO SCH (10:03)
[2019-01-04] MEDS: SODIUM CHLORIDE FLUSH SYRINGE 10 ML IV SCH ×2 (10:03→21:52)
--- NOTE | 2019-01-04 10:51 | Progress Note ---
Assessment and Plan Assessment and plan: Acute hypoxemic respiratory failure. Etiology secondary to heart failure. Continue supplemental oxygen. Acute on chronic systolic heart failure exacerbation. Echocardiogram reveals left ventricular chamber size normal with EF 30-35%. Cardiology following. Continue Lasix and Coreg. Diabetes mellitus type 2. Continue accuchecks and sliding scale insulin Hypertension. Continue anti-hypertensive medications. Encephalopathy. Resolved. Daughter reports that she is at baseline History Interval history: No new issues overnight. Patient does not respond verbally. Opens eyes to voice. Hospitalist Physical - Constitutional Vitals: Temp Pulse Resp BP Pulse Ox 97.7 F 112 H 20 158/102 98 01/04/19 09:09 01/04/19 09:08 01/04/19 09:08 01/04/19 09:08 01/04/19 10:30 General appearance: Present: no acute distress, other (confused, lethargic ) - EENT Eyes: Present: PERRL, EOM intact ENT: hearing intact, clear oral mucosa, dentition normal - Neck Neck: Present: supple, normal ROM - Respiratory Respiratory effort: normal Respiratory: bilateral: CTA - Cardiovascular Rhythm: regular Heart Sounds: Present: S1 & S2. Absent: gallop, rub - Extremities Extremities: no ischemia, No edema, Full ROM - Abdominal General gastrointestinal: soft, non-tender, non-distended, normal bowel sounds - Integumentary Integumentary: Present: clear, warm, dry - Neurologic Neurologic: CNII-XII intact, moves all extremities Results - Labs CBC & Chem 7: 01/03/19 05:16 01/03/19 05:16 Labs: Laboratory Last Values WBC 4.7 K/mm3 (4.5-11.0) 01/03/19 05:16 RBC 4.21 M/mm3 (3.65-5.03) 01/03/19 05:16 Hgb 11.4 gm/dl (10.1-14.3) 01/03/19 05:16 Hct 35.5 % (30.3-42.9) 01/03/19 05:16 MCV 84 fl (79-97) 01/03/19 05:16 MCH 27 pg (28-32) L 01/03/19 05:16 MCHC 32 % (30-34) 01/03/19 05:16 RDW 19.8 % (13.2-15.2) H 01/03/19 05:16 Plt Count 209 K/mm3 (140-440) 01/03/19 05:16 Lymph % (Auto) 32.2 % (13.4-35.0) 01/03/19 05:16 [place] % (Auto) 14.2 % (0.0-7.3) H 01/03/19 05:16 Eos % (Auto) 1.4 % (0.0-4.3) 01/03/19 05:16 Baso % (Auto) 0.4 % (0.0-1.8) 01/03/19 05:16 Lymph # 1.5 K/mm3 (1.2-5.4) 01/03/19 05:16 [place] # 0.7 K/mm3 (0.0-0.8) 01/03/19 05:16 Eos # 0.1 K/mm3 (0.0-0.4) 01/03/19 05:16 Baso # 0.0 K/mm3 (0.0-0.1) 01/03/19 05:16 Seg Neutrophils % 51.8 % (40.0-70.0) 01/03/19 05:16 Seg Neutrophils # 2.4 K/mm3 (1.8-7.7) 01/03/19 05:16 PT 14.1 Sec. (12.2-14.9) 01/02/19 04:30 INR 1.03 (0.87-1.13) 01/02/19 04:30 APTT 20.7 Sec. (24.2-36.6) L 01/02/19 04:30 POC ABG pH 7.408 (7.35-7.45) 01/02/19 05:36 POC ABG pCO2 45.3 (35-45) H 01/02/19 05:36 POC ABG pO2 235 (80-105) H 01/02/19 05:36 POC ABG HCO3 28.6 01/02/19 05:36 POC ABG Total CO2 30 01/02/19 05:36 POC ABG O2 Sat 100 01/02/19 05:36 POC ABG Base Excess 4 01/02/19 05:36 FiO2 100 % 01/02/19 05:36 Sodium 147 mmol/L (137-145) H 01/03/19 05:16 Potassium 3.1 mmol/L (3.6-5.0) L 01/03/19 05:16 Chloride 106.4 mmol/L (98-107) 01/03/19 05:16 Carbon Dioxide 28 mmol/L (22-30) D 01/03/19 05:16 Anion Gap 16 mmol/L 01/03/19 05:16 BUN 12 mg/dL (7-17) 01/03/19 05:16 Creatinine 1.0 mg/dL (0.7-1.2) 01/03/19 05:16 Estimated GFR > 60 ml/min 01/03/19 05:16 BUN/Creatinine Ratio 12 % 01/03/19 05:16 Glucose 106 mg/dL (65-100) H 01/03/19 05:16 POC Glucose 109 (70-105) H 01/04/19 05:49 Lactic Acid 1.40 mmol/L (0.7-2.0) 01/02/19 18:04 Calcium 8.7 mg/dL (8.4-10.2) 01/03/19 05:16 Magnesium 1.90 mg/dL (1.7-2.3) 01/02/19 14:36 Total Bilirubin 0.50 mg/dL (0.1-1.2) 01/03/19 05:16 AST 35 units/L (5-40) 01/03/19 05:16 ALT 24 units/L (7-56) 01/03/19 05:16 Alkaline Phosphatase 234 units/L (35-129) H 01/03/19 05:16 Ammonia 44.0 umol/L (25-60) 01/03/19 09:42 Total Creatine Kinase 84 units/L (30-135) 01/02/19 04:30 Troponin T 0.015 ng/mL (0.00-0.029) 01/02/19 07:14 C-Reactive Protein 1.60 mg/dL (0.00-1.30) H 01/02/19 14:36 NT-Pro-B Natriuret Pep 04467 pg/mL (0-900) H 01/02/19 04:30 Total Protein 6.2 g/dL (6.3-8.2) L D 01/03/19 05:16 Albumin 3.3 g/dL (3.9-5) L 01/03/19 05:16 Albumin/Globulin Ratio 1.1 % 01/03/19 05:16 TSH 8.050 mlU/mL (0.270-4.200) H 01/02/19 04:30 Free T4 1.35 ng/dL (0.76-1.46) 01/02/19 04:30 Urine Color Yellow (Yellow) 01/02/19 04:30 Urine Turbidity Clear (Clear) 01/02/19 04:30 Urine pH 6.0 (5.0-7.0) 01/02/19 04:30 Ur Specific [place] 1.005 (1.003-1.030) 01/02/19 04:30 Urine Protein 100 mg/dl mg/dL (Negative) 01/02/19 04:30 Urine Glucose (UA) 50 mg/dL (Negative) 01/02/19 04:30 Urine Ketones Neg mg/dL (Negative) 01/02/19 04:30 Urine Blood Sm (Negative) 01/02/19 04:30 Urine Nitrite Neg (Negative) 01/02/19 04:30 Urine Bilirubin Neg (Negative) 01/02/19 04:30 Urine Urobilinogen < 2.0 mg/dL (<2.0) 01/02/19 04:30 Ur Leukocyte Esterase Neg (Negative) 01/02/19 04:30 Urine WBC (Auto) 1.0 /HPF (0.0-6.0) 01/02/19 04:30 Urine RBC (Auto) 1.0 /HPF (0.0-6.0) 01/02/19 04:30 Urine Bacteria (Auto) 1+ /HPF (Negative) 01/02/19 04:30 Urine Opiates Screen Presumptive negative 01/02/19 04:30 Urine Methadone Screen Presumptive negative 01/02/19 04:30 Ur Barbiturates Screen Presumptive negative 01/02/19 04:30 Ur Phencyclidine Scrn Presumptive negative 01/02/19 04:30 Ur Amphetamines Screen Presumptive negative 01/02/19 04:30 U Benzodiazepines Scrn Presumptive negative 01/02/19 04:30 Urine Cocaine Screen Presumptive negative 01/02/19 04:30 U Marijuana (THC) Screen Presumptive negative 01/02/19 04:30 Drugs of Abuse Note Disclamer 01/02/19 04:30 Plasma/Serum Alcohol < 0.01 % (0-0.07) 01/02/19 04:30
--- NOTE | 2019-01-04 11:06 | Progress Note ---
Assessment and Plan Echo reviewed - EF 30-35%, pseudonormalization, severe mitral regurgitation, mild TR, severe pulm HTN with RVSP 62mmHg, trivial pericardial effusion, large pleural effusion. Cont present cardiac management. Pt with AMS vs. dementia. Head CT with NAF. Per primary, "daughter reports that she is at baseline". Will continue with conservative cardiac management given apparent advanced dementia. The patient has been seen in conjunction with Dr. Hudson who agrees with the assessment and plan of care. - Patient Problems (1) Acute HFrEF (heart failure with reduced ejection fraction) Current Visit: Yes Status: Acute (2) Severe mitral regurgitation Current Visit: Yes Status: Chronic (3) Altered mental status Current Visit: Yes Status: Acute Qualifiers: Altered mental status type: unspecified Qualified Code(s): R41.82 - Altered mental status, unspecified (4) HTN (hypertension) Current Visit: Yes Status: Chronic (5) Diabetes Current Visit: Yes Status: Chronic (6) Lactic acidosis Current Visit: Yes Status: Acute (7) Dementia Current Visit: Yes Status: Suspected Subjective Date of service: 01/04/19 Principal diagnosis: Acute Hypoxemic Resp Failure; Ac. Pulm Edema; Acute CHF exacerbation; DM II Interval history: pt resting in bed, alert, answers yes and no questions, otherwise nonverbal. in SR on tele with 4 beat NSVT yesterday. Objective Last Vital Signs Temp 97.7 F 01/04/19 09:09 Pulse 112 H 01/04/19 09:08 Resp 20 01/04/19 09:08 BP 158/102 01/04/19 09:08 Pulse Ox 98 01/04/19 10:30 - Physical Examination General: No Apparent Distress HEENT: Positive: PERRL Neck: Positive: neck supple, trachea midline Cardiac: Positive: Reg Rate and Rhythm, S1/S2, Systolic Murmur Lungs: Positive: Decreased Breath Sounds Neuro: Positive: Other (dementia) Abdomen: Negative: Tender Skin: Negative: Rash, Wound Musculoskeletal: No Pain Extremities: Present: +2 Edema (BLE) - Imaging and Cardiology EKG: report reviewed, image reviewed Echo: report reviewed - Telemetry EKG Rhythm: Sinus Rhythm - EKG Sinus rhythms and dysrhythmias: sinus rhythm Repolarization changes or abnormalities: nonspecific abnormality, ST segment, and/or T wave
[2019-01-04] MEDS ORDERED: K-DUR PO ONE (11:30)
[2019-01-04 12:40] LABS: Calcium 9.2 mg/dL (8.4-10.2)
--- NOTE | 2019-01-04 19:14 | Progress Note ---
Assessment and Plan Acute hypoxemic respiratory failure. Acute pulmonary edema. Acute congestive heart failure exacerbation. Possible occult pneumonia. Diabetes type II Hypokalemia, mild. Lactic acidosis. Elevated serum transaminases. Hyperammonemia. Elevated serum TSH. Obesity. Hard of hearing - continue diuresis - continue supplemental oxygen to keep sats > 90% - monitor electrolytes while diuresing - BIPAP qhs - lactate WNL and CRP unremarkable; follow clinically off AB's - optimize cardiac function per inbound telemarketer - GI & VTE prophylaxis - Flu & Pneumovax addressed per protocol - home oxygen evaluation at discharge ... re-evaluate in am & prn Subjective Date of service: 01/04/19 Principal diagnosis: Acute Hypoxemic Resp Failure; Ac. Pulm Edema; Acute CHF exacerbation; DM II Interval history: Patient is seen today for: Acute hypoxemic respiratory failure; Acute pulmonary edema; Acute congestive heart failure exacerbation; Possible occult pneumonia; Diabetes type II Seen and examined at bedside; 24hour events reviewed; nursing and respiratory care staff consulted; no adverse overnight events reported to me; resting peacefully in bed; denies acute chest pains or palpitations; on supplemental oxygen; No N/V/F/C Objective Vital Signs - 12hr 01/04/19 01/04/19 01/04/19 09:08 09:09 10:30 Temperature 97.7 F Pulse Rate 112 H Respiratory 20 Rate Blood Pressure 158/102 O2 Sat by Pulse 92 98 Oximetry 01/04/19 01/04/19 17:14 17:15 Temperature 97.6 F Pulse Rate 97 H Respiratory 18 Rate Blood Pressure 141/91 O2 Sat by Pulse 96 Oximetry Constitutional: no acute distress, alert, other (elderly looking obese AAF, no rmocephalic and atraumatic with mildly increased respiratory effort at rest) Eyes: non-icteric ENT: oropharynx moist, other (Mallampati 3) Neck: supple, no lymphadenopathy, no JVD, other (no thyromegaly) Effort: mildly labored Ascultation: Bilateral: clear, diminished breath sounds Percussion: Bilateral: not dull Cardiovascular: regular rate and rhythm Gastrointestinal: normoactive bowel sounds, soft, non-tender, non-distended Integumentary: normal Extremities: no cyanosis, no edema, pulses normal, no ischemia or petechiae Neurologic: normal mental status, non-focal exam, pupils equal and round, motor strength normal and, other (hard of hearing / legally deaf) Psychiatric: mood appropriate, affect normal CBC and BMP: 01/05/19 04:59 01/05/19 04:59 ABG, PT/INR, D-dimer: ABG POC ABG pH 7.408 (7.35-7.45) 01/02/19 05:36 POC ABG pCO2 45.3 (35-45) H 01/02/19 05:36 POC ABG pO2 235 (80-105) H 01/02/19 05:36 POC ABG HCO3 28.6 01/02/19 05:36 POC ABG Total CO2 30 01/02/19 05:36 POC ABG O2 Sat 100 01/02/19 05:36 PT/INR, D-dimer PT 14.1 Sec. (12.2-14.9) 01/02/19 04:30 INR 1.03 (0.87-1.13) 01/02/19 04:30 Abnormal lab findings: Abnormal Labs 01/02/19 01/02/19 01/02/19 03:52 04:30 04:30 MCH RDW [place] % (Auto) APTT POC ABG pH 7.267 L POC ABG pCO2 POC ABG pO2 75 L Sodium Potassium 3.5 L Carbon Dioxide 20 L Creatinine Glucose 224 H POC Glucose Lactic Acid 3.60 H* AST 56 H Alkaline Phosphatase 359 H Ammonia C-Reactive Protein NT-Pro-B Natriuret Pep Total Protein Albumin TSH 01/02/19 01/02/19 01/02/19 04:30 04:30 04:30 MCH RDW [place] % (Auto) APTT 20.7 L POC ABG pH POC ABG pCO2 POC ABG pO2 Sodium Potassium Carbon Dioxide Creatinine Glucose POC Glucose Lactic Acid AST Alkaline Phosphatase Ammonia 92.0 H C-Reactive Protein NT-Pro-B Natriuret Pep Total Protein Albumin TSH 8.050 H 01/02/19 01/02/19 01/02/19 04:30 05:11 05:36 MCH RDW [place] % (Auto) APTT POC ABG pH POC ABG pCO2 45.3 H POC ABG pO2 235 H Sodium Potassium Carbon Dioxide Creatinine Glucose POC Glucose Lactic Acid 2.30 H* AST Alkaline Phosphatase Ammonia C-Reactive Protein NT-Pro-B Natriuret Pep 92884 H Total Protein Albumin TSH 02/18/19 02/18/19 02/18/19 14:36 14:36 15:55 MCH RDW [place] % (Auto) APTT POC ABG pH POC ABG pCO2 POC ABG pO2 Sodium Potassium Carbon Dioxide Creatinine Glucose POC Glucose Lactic Acid 2.10 H* 2.20 H* AST Alkaline Phosphatase Ammonia C-Reactive Protein 1.60 H NT-Pro-B Natriuret Pep Total Protein Albumin [facility] 01/02/19 01/03/19 01/03/19 17:23 05:16 05:16 MCH 27 L RDW 19.8 H [place] % (Auto) 14.2 H APTT POC ABG pH POC ABG pCO2 POC ABG pO2 Sodium 147 H Potassium 3.1 L Carbon Dioxide Creatinine Glucose 106 H POC Glucose 124 H Lactic Acid AST Alkaline Phosphatase 234 H Ammonia C-Reactive Protein NT-Pro-B Natriuret Pep Total Protein 6.2 L D Albumin 3.3 L [facility] 01/03/19 01/03/19 01/03/19 10:51 16:52 21:11 MCH RDW [place] % (Auto) APTT POC ABG pH POC ABG pCO2 POC ABG pO2 Sodium Potassium Carbon Dioxide Creatinine Glucose POC Glucose 129 H 127 H 109 H Lactic Acid AST Alkaline Phosphatase Ammonia C-Reactive Protein NT-Pro-B Natriuret Pep Total Protein Albumin [facility] 01/04/19 01/04/19 01/04/19 05:49 11:39 16:36 MCH RDW [place] % (Auto) APTT POC ABG pH POC ABG pCO2 POC ABG pO2 Sodium Potassium 3.5 L Carbon Dioxide 31 H Creatinine 1.3 H Glucose POC Glucose 109 H 111 H Lactic Acid AST Alkaline Phosphatase Ammonia C-Reactive Protein NT-Pro-B Natriuret Pep Total Protein Albumin TSH Allied health notes reviewed: nursing
[2019-01-05] MEDS: CEPHULAC PO SCH ×4 (05:35→18:10)
[2019-01-05] MEDS: LASIX IV SCH ×2 (05:35→18:10)
[2019-01-05] MEDS: HEPARIN SUB-Q SCH ×3 (05:35→21:50)
[2019-01-05 05:42] LABS: Basophils % (Auto) 1.1 % (0.0-1.8); Eosinophils # (Auto) 0.1 K/mm3 (0.0-0.4); Eosinophils % (Auto) 2.5 % (0.0-4.3); Hematocrit 37.1 % (30.3-42.9); Hemoglobin 11.9 gm/dl (10.1-14.3); Lymphocytes # (Auto) 1.6 K/mm3 (1.2-5.4); Lymphocytes % (Auto) 37.2 % (13.4-35.0); Mean Corpuscular HGB Conc 32 % (30-34); Mean Corpuscular Volume 84 fl (79-97); Monocytes # (Auto) 0.6 K/mm3 (0.0-0.8); Platelet Count 228 K/mm3 (140-440); Red Blood Count 4.42 M/mm3 (3.65-5.03); Red Cell Distribution Width 18.7 % (13.2-15.2)
[2019-01-05] MEDS: COREG PO SCH ×2 (10:41→21:50)
[2019-01-05] MEDS: BABY ASPIRIN PO SCH (10:41)
[2019-01-05] MEDS: SODIUM CHLORIDE FLUSH SYRINGE 10 ML IV SCH ×2 (10:42→21:51)
[2019-01-05] MEDS: COZAAR PO SCH (10:42)
--- NOTE | 2019-01-05 11:06 | Progress Note ---
Assessment and Plan Cont present cardiac management. Pt appears to be clinically improving. Pt with AMS vs. dementia. Head CT with NAF. Per primary, "daughter reports that she is at baseline". Will continue with conservative cardiac management given apparent advanced dementia. Possible d/c home from cardiology standpoint in AM. The patient has been seen in conjunction with Dr. Hudson who agrees with the assessment and plan of care. - Patient Problems (1) Acute HFrEF (heart failure with reduced ejection fraction) Current Visit: Yes Status: Acute (2) Severe mitral regurgitation Current Visit: Yes Status: Chronic (3) Altered mental status Current Visit: Yes Status: Acute Qualifiers: Altered mental status type: unspecified Qualified Code(s): R41.82 - Altered mental status, unspecified (4) HTN (hypertension) Current Visit: Yes Status: Chronic (5) Diabetes Current Visit: Yes Status: Chronic (6) Lactic acidosis Current Visit: Yes Status: Acute (7) Dementia Current Visit: Yes Status: Suspected Subjective Date of service: 01/05/19 Principal diagnosis: Acute Hypoxemic Resp Failure; Ac. Pulm Edema; Acute CHF exacerbation; DM II Interval history: pt resting in bed, alert, answers yes and no questions, otherwise nonverbal. in SR on tele. Objective Last Vital Signs Temp 98.4 F 01/05/19 08:14 Pulse 96 H 01/05/19 08:14 Resp 18 01/05/19 08:14 BP 143/87 01/05/19 08:14 Pulse Ox 100 01/05/19 10:33 - Physical Examination General: No Apparent Distress HEENT: Positive: PERRL Neck: Positive: neck supple, trachea midline Cardiac: Positive: Reg Rate and Rhythm, S1/S2 Lungs: Positive: Decreased Breath Sounds Neuro: Positive: Other (dementia) Abdomen: Negative: Tender Skin: Negative: Rash, Wound Musculoskeletal: No Pain Extremities: Present: +2 Edema (BLE) - Labs and Meds CBC 01/05/19 Range/Units 04:59 WBC 4.2 L (4.5-11.0) K/mm3 RBC 4.42 (3.65-5.03) M/mm3 Hgb 11.9 (10.1-14.3) gm/dl Hct 37.1 (30.3-42.9) % Plt Count 228 (140-440) K/mm3 Lymph # 1.6 (1.2-5.4) K/mm3 [place] # 0.6 (0.0-0.8) K/mm3 Eos # 0.1 (0.0-0.4) K/mm3 Baso # 0.0 (0.0-0.1) K/mm3 Comprehensive Metabolic Panel 01/04/19 01/05/19 Range/Units 11:39 04:59 Sodium 143 143 (137-145) mmol/L Potassium 3.5 L 3.6 (3.6-5.0) mmol/L Chloride 99.5 100.4 (98-107) mmol/L Carbon Dioxide 31 H 30 (22-30) mmol/L BUN 13 18 H (7-17) mg/dL Creatinine 1.3 H 1.2 (0.7-1.2) mg/dL Glucose 83 106 H (65-100) mg/dL Calcium 9.2 9.0 (8.4-10.2) mg/dL - Imaging and Cardiology EKG: report reviewed, image reviewed Echo: report reviewed ( EF 30-35%, pseudonormalization, severe mitral regurgitation, mild TR, severe pulm HTN with RVSP 62mmHg, trivial pericardial effusion, large pleural effusion. ) - Telemetry EKG Rhythm: Sinus Rhythm - EKG Sinus rhythms and dysrhythmias: sinus rhythm Repolarization changes or abnormalities: nonspecific abnormality, ST segment, and/or T wave - Allied health notes Allied health notes reviewed: nursing
--- NOTE | 2019-01-05 11:08 | Progress Note ---
Assessment and Plan Assessment and plan: Acute hypoxemic respiratory failure. Etiology secondary to heart failure. Continue supplemental oxygen. Acute on chronic systolic heart failure exacerbation. Echocardiogram reveals left ventricular chamber size normal with EF 30-35%. Cardiology following. Continue Lasix and Coreg. Diabetes mellitus type 2. Continue accuchecks and sliding scale insulin Hypertension. Continue anti-hypertensive medications. Encephalopathy. Resolved. Daughter reports that she is at baseline Disposition. Anticipate discharge in a.m. History Interval history: No new issues overnight. Hospitalist Physical - Constitutional Vitals: Temp Pulse Resp BP Pulse Ox 98.4 F 96 H 18 143/87 100 01/05/19 08:14 01/05/19 08:14 01/05/19 08:14 01/05/19 08:14 01/05/19 10:33 General appearance: Present: no acute distress, other (confused, lethargic ) - EENT Eyes: Present: PERRL, EOM intact ENT: hearing intact, clear oral mucosa, dentition normal - Neck Neck: Present: supple, normal ROM - Respiratory Respiratory effort: normal Respiratory: bilateral: CTA - Cardiovascular Rhythm: regular Heart Sounds: Present: S1 & S2. Absent: gallop, rub - Extremities Extremities: no ischemia, No edema, Full ROM - Abdominal General gastrointestinal: soft, non-tender, non-distended, normal bowel sounds - Integumentary Integumentary: Present: clear, warm, dry - Neurologic Neurologic: CNII-XII intact, moves all extremities Results - Labs CBC & Chem 7: 01/05/19 04:59 01/05/19 04:59 Labs: Laboratory Last Values WBC 4.2 K/mm3 (4.5-11.0) L 01/05/19 04:59 RBC 4.42 M/mm3 (3.65-5.03) 01/05/19 04:59 Hgb 11.9 gm/dl (10.1-14.3) 01/05/19 04:59 Hct 37.1 % (30.3-42.9) 01/05/19 04:59 MCV 84 fl (79-97) 01/05/19 04:59 MCH 27 pg (28-32) L 01/05/19 04:59 MCHC 32 % (30-34) 01/05/19 04:59 RDW 18.7 % (13.2-15.2) H 01/05/19 04:59 Plt Count 228 K/mm3 (140-440) 01/05/19 04:59 Lymph % (Auto) 37.2 % (13.4-35.0) H 01/05/19 04:59 [place] % (Auto) 15.0 % (0.0-7.3) H 01/05/19 04:59 Eos % (Auto) 2.5 % (0.0-4.3) 01/05/19 04:59 Baso % (Auto) 1.1 % (0.0-1.8) 01/05/19 04:59 Lymph # 1.6 K/mm3 (1.2-5.4) 01/05/19 04:59 [place] # 0.6 K/mm3 (0.0-0.8) 01/05/19 04:59 Eos # 0.1 K/mm3 (0.0-0.4) 01/05/19 04:59 Baso # 0.0 K/mm3 (0.0-0.1) 01/05/19 04:59 Seg Neutrophils % 44.2 % (40.0-70.0) 01/05/19 04:59 Seg Neutrophils # 1.9 K/mm3 (1.8-7.7) 01/05/19 04:59 PT 14.1 Sec. (12.2-14.9) 01/02/19 04:30 INR 1.03 (0.87-1.13) 01/02/19 04:30 APTT 20.7 Sec. (24.2-36.6) L 01/02/19 04:30 POC ABG pH 7.408 (7.35-7.45) 01/02/19 05:36 POC ABG pCO2 45.3 (35-45) H 01/02/19 05:36 POC ABG pO2 235 (80-105) H 01/02/19 05:36 POC ABG HCO3 28.6 01/02/19 05:36 POC ABG Total CO2 30 01/02/19 05:36 POC ABG O2 Sat 100 01/02/19 05:36 POC ABG Base Excess 4 01/02/19 05:36 FiO2 100 % 01/02/19 05:36 Sodium 143 mmol/L (137-145) 01/05/19 04:59 Potassium 3.6 mmol/L (3.6-5.0) 01/05/19 04:59 Chloride 100.4 mmol/L (98-107) 01/05/19 04:59 Carbon Dioxide 30 mmol/L (22-30) 01/05/19 04:59 Anion Gap 16 mmol/L 01/05/19 04:59 BUN 18 mg/dL (7-17) H 01/05/19 04:59 Creatinine 1.2 mg/dL (0.7-1.2) 01/05/19 04:59 Estimated GFR 55 ml/min 01/05/19 04:59 BUN/Creatinine Ratio 15 % 01/05/19 04:59 Glucose 106 mg/dL (65-100) H 01/05/19 04:59 POC Glucose 100 (70-105) 01/05/19 05:33 Lactic Acid 1.40 mmol/L (0.7-2.0) 01/02/19 18:04 Calcium 9.0 mg/dL (8.4-10.2) 01/05/19 04:59 Magnesium 1.90 mg/dL (1.7-2.3) 01/02/19 14:36 Total Bilirubin 0.50 mg/dL (0.1-1.2) 01/03/19 05:16 AST 35 units/L (5-40) 01/03/19 05:16 ALT 24 units/L (7-56) 01/03/19 05:16 Alkaline Phosphatase 234 units/L (35-129) H 01/03/19 05:16 Ammonia 44.0 umol/L (25-60) 01/03/19 09:42 Total Creatine Kinase 84 units/L (30-135) 01/02/19 04:30 Troponin T 0.015 ng/mL (0.00-0.029) 01/02/19 07:14 C-Reactive Protein 1.60 mg/dL (0.00-1.30) H 01/02/19 14:36 NT-Pro-B Natriuret Pep 94977 pg/mL (0-900) H 01/02/19 04:30 Total Protein 6.2 g/dL (6.3-8.2) L D 01/03/19 05:16 Albumin 3.3 g/dL (3.9-5) L 01/03/19 05:16 Albumin/Globulin Ratio 1.1 % 01/03/19 05:16 TSH 8.050 mlU/mL (0.270-4.200) H 01/02/19 04:30 Free T4 1.35 ng/dL (0.76-1.46) 01/02/19 04:30 Urine Color Yellow (Yellow) 01/02/19 04:30 Urine Turbidity Clear (Clear) 01/02/19 04:30 Urine pH 6.0 (5.0-7.0) 01/02/19 04:30 Ur Specific [place] 1.005 (1.003-1.030) 01/02/19 04:30 Urine Protein 100 mg/dl mg/dL (Negative) 01/02/19 04:30 Urine Glucose (UA) 50 mg/dL (Negative) 01/02/19 04:30 Urine Ketones Neg mg/dL (Negative) 01/02/19 04:30 Urine Blood Sm (Negative) 01/02/19 04:30 Urine Nitrite Neg (Negative) 01/02/19 04:30 Urine Bilirubin Neg (Negative) 01/02/19 04:30 Urine Urobilinogen < 2.0 mg/dL (<2.0) 01/02/19 04:30 Ur Leukocyte Esterase Neg (Negative) 01/02/19 04:30 Urine WBC (Auto) 1.0 /HPF (0.0-6.0) 01/02/19 04:30 Urine RBC (Auto) 1.0 /HPF (0.0-6.0) 01/02/19 04:30 Urine Bacteria (Auto) 1+ /HPF (Negative) 01/02/19 04:30 Urine Opiates Screen Presumptive negative 01/02/19 04:30 Urine Methadone Screen Presumptive negative 01/02/19 04:30 Ur Barbiturates Screen Presumptive negative 01/02/19 04:30 Ur Phencyclidine Scrn Presumptive negative 01/02/19 04:30 Ur Amphetamines Screen Presumptive negative 01/02/19 04:30 U Benzodiazepines Scrn Presumptive negative 01/02/19 04:30 Urine Cocaine Screen Presumptive negative 01/02/19 04:30 U Marijuana (THC) Screen Presumptive negative 01/02/19 04:30 Drugs of Abuse Note Disclamer 01/02/19 04:30 Plasma/Serum Alcohol < 0.01 % (0-0.07) 01/02/19 04:30
[2019-01-06] MEDS: CEPHULAC PO SCH ×4 (00:10→17:36)
[2019-01-06] MEDS: HEPARIN SUB-Q SCH ×2 (06:24→14:26)
[2019-01-06] MEDS: LASIX IV SCH ×2 (06:24→17:36)
--- NOTE | 2019-01-06 09:59 | Discharge Summary ---
Providers - Providers Date of Admission: 01/02/19 06:37 Date of discharge: 01/06/19 Attending physician: LINUS PARISH 01/02/19 Consult to Case Management [CONS] Routine Services Needed at Discharge: Other Notified:: case maker Comment:: kofi planning 01/02/19 12:24 Consult to Physician [CONS] Routine Comment: Consulting Provider: IRENE CHING Physician Instructions: Reason For Exam: Acute resp failure, on ventimask 01/02/19 12:25 Consult to Physician [CONS] Routine Comment: Consulting Provider: FRITZ GAITAN Physician Instructions: Reason For Exam: CHF exacerbation [facility] Reason for admission: chf exac, Condition: Stable Hospital course: The patient is 63 yo female with history of ? dementia, history of heart failure, DM, HTN, hard of hearing who presented with chief complaint shortness of breath. Patient was admitted through the emergency department with diagnosis of acute hypoxemia respiratory failure secondary to acute on chronic systolic heart failure exacerbation. Patient underwent echocardiogram which revealed left ventricular chamber size normal with EF 30-35%. Cardiology was consulted and patient was treated medically with Lasix and Coreg. The patient had slow improvement throughout hospitalization. The patient's mental status turned to normal sinus baseline per daughter. Patient's respiratory status also returned to baseline. However, pt does require oxygen because of dyspnea with exertion. CM notified and home O2 arranged. Patient was felt to receive maximal hospital benefit and will be discharged home. Dedicated discharge time 35 minutes. Disposition: DC-01 TO HOME OR SELFCARE Time spent for discharge: 35 - Discharge Diagnoses (1) Acute HFrEF (heart failure with reduced ejection fraction) Status: Acute (2) Altered mental status Status: Acute Qualifiers: Altered mental status type: unspecified Qualified Code(s): R41.82 - Altered mental status, unspecified (3) Pulmonary edema Status: Acute Qualifiers: Chronicity: acute Qualified Code(s): J81.0 - Acute pulmonary edema (4) Diabetes Status: Chronic (5) HTN (hypertension) Status: Chronic (6) Dementia Status: Suspected Core Measure Documentation - Palliative Care Palliative Care/ Comfort Measures: Not Applicable - Core Measures Any of the following diagnoses?: heart failure - Heart Failure Discharge Requirements GITA/ARB for LVSD if EF <40%: Yes Beta zaire at discharge: Yes Exam - Constitutional Vitals: Temp Pulse Resp BP Pulse Ox 98.3 F 89 14 129/87 98 01/06/19 04:15 01/06/19 04:15 01/06/19 04:15 01/06/19 04:15 01/06/19 04:15 General appearance: Present: no acute distress, well-nourished - EENT Eyes: Present: PERRL ENT: hearing intact, clear oral mucosa - Neck Neck: Present: supple, normal ROM - Respiratory Respiratory effort: normal Respiratory: bilateral: CTA - Cardiovascular Heart Sounds: Present: S1 & S2. Absent: rub, click - Extremities Extremities: pulses symmetrical, No edema Peripheral Pulses: within normal limits - Abdominal General gastrointestinal: Present: soft, non-tender, non-distended, normal bowel sounds Female genitourinary: Present: normal - Integumentary Integumentary: Present: clear, warm, dry - Musculoskeletal Musculoskeletal: gait normal, strength equal bilaterally - Psychiatric Psychiatric: appropriate mood/affect, intact judgment & insight - Neurologic Neurologic: CNII-XII intact, moves all extremities Plan Activity: no restrictions Weight Bearing Status: Full Weight Bearing Diet: regular Follow up with: MAGDA HUDSON MD [Staff Physician] - 7 Days (Follow up in our [place] office with Dr. Hudson on 01/12/2019 @ 2:00PM. ) PRIMARY CAREMD [Referring] - 3-5 Days Prescriptions: amLODIPine 2.5 mg PO BID #60 Aspirin 81 mg PO DAILY #30 Carvedilol 12.5 mg PO DAILY #30 Furosemide [Lasix] 40 mg PO DAILY #30 tablet Januvia 100 mg PO DAILY #30 Losartan 100 mg PO DAILY #30
--- NOTE | 2019-01-06 10:23 | Progress Note ---
Assessment and Plan Currently stable cardiac status. Convert IV lasix to PO lasix 40mg daily. Cont all other present cardiac management. Per pt's daughter at bedside, pt has history of "mental retardation" and is currently at her baseline mental status. Assessment and plan reviewed with pt's daughter and she is agreeable to continue with conservative medical cardiac management at this time. Pt may discharge home from cardiology standpoint. Follow up in our [place] office with Dr. Hudson on 01/12/2019 @ 2:00PM. The patient has been seen in conjunction with Dr. Hudson who agrees with the assessment and plan of care. - Patient Problems (1) Acute HFrEF (heart failure with reduced ejection fraction) Current Visit: Yes Status: Acute (2) Severe mitral regurgitation Current Visit: Yes Status: Chronic (3) Altered mental status Current Visit: Yes Status: Acute Qualifiers: Altered mental status type: unspecified Qualified Code(s): R41.82 - Altered mental status, unspecified (4) HTN (hypertension) Current Visit: Yes Status: Chronic (5) Diabetes Current Visit: Yes Status: Chronic (6) Lactic acidosis Current Visit: Yes Status: Acute (7) Dementia Current Visit: Yes Status: Suspected Subjective Date of service: 01/06/19 Principal diagnosis: Acute Hypoxemic Resp Failure; Ac. Pulm Edema; Acute CHF exacerbation; DM II Interval history: pt resting in bed, no apparent distress. Objective Vital Signs Temp Pulse Resp BP Pulse Ox 01/06/19 04:15 98.3 F 89 14 129/87 98 01/06/19 03:00 107 H 01/06/19 00:00 98.5 F 83 16 132/78 98 01/05/19 22:44 98 H 21 98 01/05/19 19:56 100 01/05/19 19:35 98.3 F 95 H 20 141/84 96 01/05/19 19:00 91 H 01/05/19 17:17 98.4 F 91 H 18 141/85 99 01/05/19 12:23 98.2 F 87 18 137/83 99 01/05/19 11:00 96 H 01/05/19 10:33 100 - Physical Examination General: No Apparent Distress HEENT: Positive: PERRL Neck: Positive: neck supple, trachea midline Neuro: Positive: Other (dementia) Abdomen: Negative: Tender Skin: Negative: Rash, Wound Musculoskeletal: No Pain Extremities: Present: +2 Edema (BLE) - Imaging and Cardiology EKG: report reviewed, image reviewed Echo: report reviewed ( EF 30-35%, pseudonormalization, severe mitral regurgitation, mild TR, severe pulm HTN with RVSP 62mmHg, trivial pericardial effusion, large pleural effusion. ) - EKG Sinus rhythms and dysrhythmias: sinus rhythm Repolarization changes or abnormalities: nonspecific abnormality, ST segment, and/or T wave - Allied health notes Allied health notes reviewed: nursing
[2019-01-06 11:42] VITALS: BP 136/77
[2019-01-06] MEDS: COZAAR PO SCH (11:48)
[2019-01-06] MEDS: COREG PO SCH (11:48)
[2019-01-06] MEDS: BABY ASPIRIN PO SCH (11:48)
[2019-01-06] MEDS: SODIUM CHLORIDE FLUSH SYRINGE 10 ML IV SCH (11:49)
--- NOTE | 2019-01-06 14:34 | Progress Note ---
Assessment and Plan Acute hypoxemic respiratory failure. Acute pulmonary edema. Acute congestive heart failure exacerbation. Possible occult pneumonia. Diabetes type II Hypokalemia, mild. Lactic acidosis. Elevated serum transaminases. Hyperammonemia. Elevated serum TSH. Obesity. Hard of hearing - continue gentle diuresis - continue supplemental oxygen to keep sats > 90% - monitor electrolytes while diuresing - BIPAP qhs - lactate WNL and CRP unremarkable; follow clinically off AB's - optimize cardiac function per machine packager - GI & VTE prophylaxis - Flu & Pneumovax addressed per protocol - home oxygen evaluation at discharge - discharge planning ok respiratory-blanchard ... re-evaluate in am & prn Subjective Date of service: 01/06/19 Principal diagnosis: Acute Hypoxemic Resp Failure; Ac. Pulm Edema; Acute CHF exacerbation; DM II Interval history: Patient is seen today for: Acute hypoxemic respiratory failure; Acute pulmonary edema; Acute congestive heart failure exacerbation; Possible occult pneumonia; Diabetes type II Seen and examined at bedside; 24hour events reviewed; nursing and respiratory care staff consulted; no adverse overnight events reported to me; resting peacefully in bed; doing better; No N/V/F/C Objective Vital Signs - 12hr 01/06/19 01/06/19 01/06/19 03:00 04:15 10:00 Temperature 98.3 F Pulse Rate 107 H 89 Respiratory 14 Rate Blood Pressure 129/87 Blood Pressure [Right] O2 Sat by Pulse 98 97 Oximetry 01/06/19 01/06/19 01/06/19 11:00 11:15 11:41 Temperature Pulse Rate 84 87 Respiratory Rate Blood Pressure Blood Pressure 136/77 [Right] O2 Sat by Pulse 95 Oximetry 01/06/19 11:48 Temperature Pulse Rate Respiratory Rate Blood Pressure 136/77 Blood Pressure [Right] O2 Sat by Pulse Oximetry Constitutional: no acute distress, alert, other (elderly looking obese AAF, normocephalic and atraumatic with mildly increased respiratory effort at rest) Eyes: non-icteric ENT: oropharynx moist, other (Mallampati 3) Neck: supple, no lymphadenopathy, no JVD, other (no thyromegaly) Effort: mildly labored Ascultation: Bilateral: clear, diminished breath sounds Percussion: Bilateral: not dull Cardiovascular: regular rate and rhythm Gastrointestinal: normoactive bowel sounds, soft, non-tender, non-distended Integumentary: normal Extremities: no cyanosis, no edema, pulses normal, no ischemia or petechiae Neurologic: normal mental status, non-focal exam, pupils equal and round, motor strength normal and, other (hard of hearing / legally deaf) Psychiatric: mood appropriate, affect normal CBC and BMP: 01/05/19 04:59 01/05/19 04:59 ABG, PT/INR, D-dimer: ABG POC ABG pH 7.408 (7.35-7.45) 01/02/19 05:36 POC ABG pCO2 45.3 (35-45) H 01/02/19 05:36 POC ABG pO2 235 (80-105) H 01/02/19 05:36 POC ABG HCO3 28.6 01/02/19 05:36 POC ABG Total CO2 30 01/02/19 05:36 POC ABG O2 Sat 100 01/02/19 05:36 PT/INR, D-dimer PT 14.1 Sec. (12.2-14.9) 01/02/19 04:30 INR 1.03 (0.87-1.13) 01/02/19 04:30 Abnormal lab findings: Abnormal Labs 01/02/19 01/02/19 01/02/19 03:52 04:30 04:30 WBC MCH RDW Lymph % (Auto) [place] % (Auto) APTT POC ABG pH 7.267 L POC ABG pCO2 POC ABG pO2 75 L Sodium Potassium 3.5 L Carbon Dioxide 20 L BUN Creatinine Glucose 224 H POC Glucose Lactic Acid 3.60 H* AST 56 H Alkaline Phosphatase 359 H Ammonia C-Reactive Protein NT-Pro-B Natriuret Pep Total Protein Albumin TSH 01/02/19 01/02/19 01/02/19 04:30 04:30 04:30 WBC MCH RDW Lymph % (Auto) [place] % (Auto) APTT 20.7 L POC ABG pH POC ABG pCO2 POC ABG pO2 Sodium Potassium Carbon Dioxide BUN Creatinine Glucose POC Glucose Lactic Acid AST Alkaline Phosphatase Ammonia 92.0 H C-Reactive Protein NT-Pro-B Natriuret Pep Total Protein Albumin TSH 8.050 H 01/02/19 01/02/19 01/02/19 04:30 05:11 05:36 WBC MCH RDW Lymph % (Auto) [place] % (Auto) APTT POC ABG pH POC ABG pCO2 45.3 H POC ABG pO2 235 H Sodium Potassium Carbon Dioxide BUN Creatinine Glucose POC Glucose Lactic Acid 2.30 H* AST Alkaline Phosphatase Ammonia C-Reactive Protein NT-Pro-B Natriuret Pep 93110 H Total Protein Albumin [facility] 01/02/19 01/02/19 01/02/19 14:36 14:36 15:55 WBC MCH RDW Lymph % (Auto) [place] % (Auto) APTT POC ABG pH POC ABG pCO2 POC ABG pO2 Sodium Potassium Carbon Dioxide BUN Creatinine Glucose POC Glucose Lactic Acid 2.10 H* 2.20 H* AST Alkaline Phosphatase Ammonia C-Reactive Protein 1.60 H NT-Pro-B Natriuret Pep Total Protein Albumin [facility] 01/02/19 01/03/19 01/03/19 17:23 05:16 05:16 WBC MCH 27 L RDW 19.8 H Lymph % (Auto) [place] % (Auto) 14.2 H APTT POC ABG pH POC ABG pCO2 POC ABG pO2 Sodium 147 H Potassium 3.1 L Carbon Dioxide BUN Creatinine Glucose 106 H POC Glucose 124 H Lactic Acid AST Alkaline Phosphatase 234 H Ammonia C-Reactive Protein NT-Pro-B Natriuret Pep Total Protein 6.2 L D Albumin 3.3 L [facility] 01/03/19 01/03/19 01/03/19 10:51 16:52 21:11 WBC MCH RDW Lymph % (Auto) [place] % (Auto) APTT POC ABG pH POC ABG pCO2 POC ABG pO2 Sodium Potassium Carbon Dioxide BUN Creatinine Glucose POC Glucose 129 H 127 H 109 H Lactic Acid AST Alkaline Phosphatase Ammonia C-Reactive Protein NT-Pro-B Natriuret Pep Total Protein Albumin [facility] 01/04/19 01/04/19 01/04/19 05:49 11:39 16:36 WBC MCH RDW Lymph % (Auto) [place] % (Auto) APTT POC ABG pH POC ABG pCO2 POC ABG pO2 Sodium Potassium 3.5 L Carbon Dioxide 31 H BUN Creatinine 1.3 H Glucose POC Glucose 109 H 111 H Lactic Acid AST Alkaline Phosphatase Ammonia C-Reactive Protein NT-Pro-B Natriuret Pep Total Protein Albumin [facility] 01/04/19 01/05/19 01/05/19 21:08 04:59 04:59 WBC 4.2 L MCH 27 L RDW 18.7 H Lymph % (Auto) 37.2 H [place] % (Auto) 15.0 H APTT POC ABG pH POC ABG pCO2 POC ABG pO2 Sodium Potassium Carbon Dioxide BUN 18 H Creatinine Glucose 106 H POC Glucose 116 H Lactic Acid AST Alkaline Phosphatase Ammonia C-Reactive Protein NT-Pro-B Natriuret Pep Total Protein Albumin TSH 01/05/19 21:52 WBC MCH RDW Lymph % (Auto) [place] % (Auto) APTT POC ABG pH POC ABG pCO2 POC ABG pO2 Sodium Potassium Carbon Dioxide BUN Creatinine Glucose POC Glucose 138 H Lactic Acid AST Alkaline Phosphatase Ammonia C-Reactive Protein NT-Pro-B Natriuret Pep Total Protein Albumin TSH Allied health notes reviewed: nursing
== END 2019-01-06 18:30 | disposition home health service (06) | DRG 441 ==
LOC: ED 03:33 → 4A 06:37
PROVIDERS: ADMIT Internal Medicine; ATTEND Hospitalist
PROC: 4A033R1 Measurement of Arterial Saturation, Peripheral, Percutaneous Approach (ICD-10-PCS; principal; 2019-01-02)
PROC: 5A09357 Assistance with Respiratory Ventilation, Less than 24 Consecutive Hours, Continuous Positive Airway Pressure (ICD-10-PCS; 2019-01-02)
PROC: 5A09357 Assistance with Respiratory Ventilation, Less than 24 Consecutive Hours, Continuous Positive Airway Pressure (ICD-10-PCS; 2019-01-05)
DX: K72.90 Hepatic failure, unspecified without coma (principal); G92 Toxic encephalopathy; J96.01 Acute respiratory failure with hypoxia; I50.23 Acute on chronic systolic (congestive) heart failure; I11.0 Hypertensive heart disease with heart failure; E87.2 Acidosis; E11.9 Type 2 diabetes mellitus without complications; I27.20 Pulmonary hypertension, unspecified; I08.1 Rheumatic disorders of both mitral and tricuspid valves; F03.90 Unspecified dementia, unspecified severity, without behavioral disturbance, psychotic disturbance, mood disturbance, and anxiety; E87.6 Hypokalemia; E66.9 Obesity, unspecified; Z79.82 Long term (current) use of aspirin; Z68.29 Body mass index [BMI] 29.0-29.9, adult; Z79.84 Long term (current) use of oral hypoglycemic drugs
CPT/HCPCS: 36415; 70450; 71045; 80048; 80053; 80307; 80320; 81001; 82140; 82550; 82803; 82962; 83735; 83880; 84439; 84443; 84484; 85025; 85610; 85730; 86140; 87040; 93005; 93010; 93306; 94660; 94760; G0378; G0480; J1644; J1940

== ENCOUNTER 2021-11-13 18:08 | Emergency (ER) | payer MEDICARE ==
--- NOTE | 2021-11-13 23:00 | Emergency Department Report ---
- General Chief Complaint: Upper Respiratory Infection Stated Complaint: COVID SYMPTOMS Source: patient Mode of arrival: Ambulatory Limitations: No Limitations - History of Present Illness Initial Comments: Patient is a 66-year-old -[place] female with a history of hypertension, CHF, bso-bdyyqdm-zbubvqtrt diabetes, CKD, and total deafness presents to the ED with complaint of acute onset persistent nasal and sinus congestion, persistent dry cough, persistent nausea and vomiting and diarrhea for the last 3 days. Per family, patient last had nausea and vomiting 24 hours ago and that the patient has had intermittent loss of appetite. Family states that no one else at home has had similar symptoms and that the patient has had a single COVID-19 vaccination and is awaiting the second vaccination. Family stated that the patient had an outpatient COVID-19 diagnostic test and is currently awaiting the results. Family stated that the patient has not had any fever, sore throat, chills, dizziness, syncope, chest pain, shortness of breath, dysuria, urinary frequency and urgency or abdominal pain. MD Complaint: cough, rhinorrhea, nasal congestion, sinus pain, other (nausea, vomiting and diarrhea) -: Sudden, days(s) (3) Severity: moderate Severity scale (0 -10): 3 Quality: dull Consistency: intermittent Improves With: nothing Worsens With: nothing Associated Symptoms: denies other symptoms, myalgias, headache, rhinorrhea, nasal congestion, cough, nausea, vomiting, diarrhea. denies: fever, chills, diaphoresis, sore throat, stiff neck, chest pain, shortness of breath, abdominal pain, confusion, right sweats, weight loss, epistaxis, hoarseness, ear pain Treatments Prior to Arrival: "cold medicine" - Related Data Previous Rx's Medication Instructions Recorded Last Taken Type Aspirin 81 mg PO DAILY #30 01/06/19 Unknown Rx Aspirin [Aspirin BABY CHEW TAB] 81 mg PO QDAY #30 tab.chew 01/06/19 Unknown Rx Carvedilol 12.5 mg PO DAILY #30 01/06/19 Unknown Rx Furosemide [Lasix] 40 mg PO DAILY #30 tablet 01/06/19 Unknown Rx Januvia 100 mg PO DAILY #30 01/06/19 Unknown Rx Losartan 100 mg PO DAILY #30 01/06/19 Unknown Rx Losartan [Cozaar] 100 mg PO QDAY #30 tablet 02/22/19 Unknown Rx amLODIPine 2.5 mg PO BID #60 01/06/19 Unknown Rx carvediloL [Coreg] 12.5 mg PO BID #60 tablet 01/06/19 Unknown Rx Benzonatate [Tessalon Perles] 100 mg PO Q8HR #30 capsule 11/13/21 Unknown Rx Cetirizine HCl [Zyrtec 10mg tab] 10 mg PO DAILY #30 tablet 11/13/21 Unknown Rx Doxycycline Hyclate [Doxycycline 100 mg PO Q12HR #20 tab 11/13/21 Unknown Rx Hyclate TAB] Ondansetron [Zofran Odt] 4 mg PO Q6HR PRN #20 tab.rapdis 11/13/21 Unknown Rx Allergies Allergy/AdvReac Type Severity Reaction Status Date / Time No Known Allergies Allergy Verified 01/02/19 09:50 ED Review of Systems ROS: Stated complaint: COVID SYMPTOMS Other details as noted in HPI Constitutional: malaise. denies: chills, fever, weakness Eyes: denies: eye pain, eye discharge, vision change ENT: congestion. denies: ear pain, throat pain Respiratory: cough. denies: shortness of breath, wheezing Cardiovascular: denies: chest pain, palpitations Endocrine: no symptoms reported Gastrointestinal: nausea, vomiting, diarrhea. denies: abdominal pain Genitourinary: denies: urgency, dysuria, discharge Musculoskeletal: denies: back pain, joint swelling, arthralgia Skin: denies: rash, lesions Neurological: denies: headache, weakness, paresthesias Psychiatric: denies: anxiety, depression Hematological/Lymphatic: denies: easy bleeding, easy bruising ED Past Medical Hx - Past Medical History Previous Medical History?: Yes Hx Hypertension: Yes Hx Congestive Heart Failure: Yes Hx Diabetes: Yes Hx Renal Disease: Yes Additional medical history: chf - Surgical History Past Surgical History?: No - Social History Smoking Status: Never Smoker - Medications Home Medications: Home Medications Medication Instructions Recorded Confirmed Last Taken Type Aspirin 81 mg PO DAILY #30 01/06/19 Unknown Rx Aspirin [Aspirin BABY CHEW TAB] 81 mg PO QDAY #30 tab.chew 01/06/19 Unknown Rx Carvedilol 12.5 mg PO DAILY #30 01/06/19 Unknown Rx Furosemide [Lasix] 40 mg PO DAILY #30 tablet 01/06/19 Unknown Rx Januvia 100 mg PO DAILY #30 01/06/19 Unknown Rx Losartan 100 mg PO DAILY #30 01/06/19 Unknown Rx Losartan [Cozaar] 100 mg PO QDAY #30 tablet 01/06/19 Unknown Rx amLODIPine 2.5 mg PO BID #60 01/06/19 Unknown Rx carvediloL [Coreg] 12.5 mg PO BID #60 tablet 01/06/19 Unknown Rx Benzonatate [Tessalon Perles] 100 mg PO Q8HR #30 capsule 11/13/21 Unknown Rx Cetirizine HCl [Zyrtec 10mg tab] 10 mg PO DAILY #30 tablet 11/13/21 Unknown Rx Doxycycline Hyclate [Doxycycline 100 mg PO Q12HR #20 tab 11/13/21 Unknown Rx Hyclate TAB] Ondansetron [Zofran Odt] 4 mg PO Q6HR PRN #20 tab.rapdis 11/13/21 Unknown Rx ED Physical Exam - General Limitations: No Limitations General appearance: alert, in no apparent distress - Head Head exam: Present: atraumatic, normocephalic, normal inspection - Eye Eye exam: Present: normal appearance, PERRL, EOMI Pupils: Present: normal accommodation - ENT ENT exam: Present: normal orophraynx, mucous membranes moist, TM's normal bilaterally, normal external ear exam, other (Grossly congested nasal passages) - Neck Neck exam: Present: normal inspection, full ROM - Respiratory Respiratory exam: Present: normal lung sounds bilaterally. Absent: respiratory distress, wheezes, rales, rhonchi, chest wall tenderness, accessory muscle use, decreased breath sounds - Cardiovascular Cardiovascular Exam: Present: regular rate, normal rhythm, normal heart sounds. Absent: systolic murmur, diastolic murmur, rubs, gallop - GI/Abdominal GI/Abdominal exam: Present: soft, normal bowel sounds. Absent: tenderness, guarding, rebound, hyperactive bowel sounds, hypoactive bowel sounds, organomegaly - Extremities Exam Extremities exam: Present: normal inspection, full ROM, normal capillary refill - Back Exam Back exam: Present: normal inspection, full ROM. Absent: tenderness, CVA tenderness (R), CVA tenderness (L), muscle spasm, paraspinal tenderness, vertebral tenderness - Neurological Exam Neurological exam: Present: alert, oriented X3, CN II-XII intact, normal gait, reflexes normal - Psychiatric Psychiatric exam: Present: normal affect, normal mood - Skin Skin exam: Present: warm, dry, intact, normal color. Absent: rash ED Course Vital Signs 11/13/21 19:36 Temperature 97.9 F Pulse Rate 97 H Respiratory 18 Rate Blood Pressure 156/81 O2 Sat by Pulse 94 Oximetry ED Medical Decision Making - Medical Decision Making This is a 66-year-old -[place] female with a history of hypertension, CHF, tpi-zzmeqgw-vcmsviukn diabetes, CKD, and total deafness presents to the ED with complaint of acute onset persistent nasal and sinus congestion, persistent dry cough, persistent nausea and vomiting and diarrhea for the last 3 days. Per family, patient last had nausea and vomiting 24 hours ago and that the patient has had intermittent loss of appetite. Family states that no one else at home has had similar symptoms and that the patient has had a single COVID-19 vaccination and is awaiting the second vaccination. Family stated that the patient had an outpatient COVID-19 diagnostic test and is currently awaiting the results. In the ED, patient is alert and oriented x3 and is not in any distress. Patient was evaluated in the presence of her family members were able to speak to her with sign language in order for her to relate her history. Based on the history and physical exam findings, the patient symptoms are likely due to upper respiratory infection. Patient was therefore discharged home on medications and advised to follow-up with her primary care physician in 7 to 10 days for reevaluation or return to the ED immediately if symptoms get worse. - Differential Diagnosis URI; bronchitis; sinusitis; viral syndrome; dehydration; pneumonia Critical care attestation.: If time is entered above; I have spent that time in minutes in the direct care of this critically ill patient, excluding procedure time. ED Disposition Clinical Impression: Acute upper respiratory infection, Nausea, vomiting and diarrhea, Nonspecific syndrome suggestive of viral illness Acute bronchitis Qualifiers: Bronchitis organism: other organism Qualified Code(s): J20.8 - Acute bronchitis due to other specified organisms Disposition: 01 HOME / SELF CARE / HOMELESS Is pt being admited?: No Does the pt Need Aspirin: No Condition: Stable Instructions: Acute Bronchitis (ED), Upper Respiratory Infection, Adult, E asy-to-Read, Cough, Adult, [id number], Nausea and Vomiting, Adult, Lpkf-jc-[id number], Acute Bronchitis, Adult, Hzrk-[id number], Diarrhea, Adult, Hnrj-[id number] Additional Instructions: Take medication with food, drink plenty of fluids and follow-up with your primary care physician in 7 to 10 days for reevaluation. Return to the ED immediately if symptoms get worse. Prescriptions: Doxycycline Hyclate [Doxycycline Hyclate TAB] 100 mg PO Q12HR #20 tab Benzonatate [Tessalon Perles] 100 mg PO Q8HR #30 capsule Ondansetron [Zofran Odt] 4 mg PO Q6HR PRN #20 tab.rapdis PRN Reason: Nausea Cetirizine HCl [Zyrtec 10mg tab] 10 mg PO DAILY #30 tablet Referrals: [facility] [Provider Group] - 7-10 days Time of Disposition: 22:57 Print Language: MALIAN
[2021-11-13 23:38] VITALS: BP 202/101
== END 2021-11-13 23:37 | disposition home or self-care (01) ==
LOC: ED 18:08
DX: J06.9 Acute upper respiratory infection, unspecified (principal); R11.2 Nausea with vomiting, unspecified; R19.7 Diarrhea, unspecified; B34.9 Viral infection, unspecified; J20.8 Acute bronchitis due to other specified organisms; E11.8 Type 2 diabetes mellitus with unspecified complications
CPT/HCPCS: 99282